=== PATIENT | female | born 1985 | race African-American/Black ===

== ENCOUNTER 2018-06-30 14:24 | Inpatient (IN) | payer SELFPAY ==
[2018-06-30 15:13] LABS: #Basophils 0.1 thou/uL (0.0-0.2); #Eosinphils 0.1 thou/uL (0.0-0.7); #Lymphocytes 2.7 thou/uL (1.20-3.40); #Monocytes 0.4 thou/uL (0.11-0.59); #Neutrophils 4.5 thou/uL (1.40-6.50); %Basophils 1.2 % (0.0-1.0); %Eosinophils 0.8 % (0.0-10.0); %Monocytes 4.7 % (0.0-10.0); %Neutrophils 58.4 % (42.0-75.0); Hemoglobin 7.9 g/dL (12.0-16.0); Mean Corpuscular HGB CONC 33.1 g/dL (32.0-36.0); Mean Corpuscular Hemoglobin 42.4 pg (27.0-31.0); Mean Platelet Volume 6.9 fL (7.4-10.4); Platelet Count 417 thou/uL (130-400); RBC Distribution Width 15.2 % (11.5-14.5); Red Blood Cell (RBC) Count 1.85 mill/uL (4.20-5.40); White Blood Cell (WBC) Count 7.8 thou/uL (4.8-10.8)
[2018-06-30 15:26] LABS: Anisocytosis SLIGHT = 6-15 cells (100X) (0-5/hpf); Hypochromia SLIGHT = 6-15 cells (100X) (0-5/hpf); MDiff Complete? YES; Macrocytosis SLIGHT = 6-15 cells (100X) (0-5/hpf); PLT Morphology Comment Appears Increased
--- NOTE | 2018-06-30 15:27 | RAD ---
PORTABLE CHEST: HISTORY: Leg swelling. FINDINGS: Heart size and mediastinum are within normal limits. The lungs are clear of any infiltrative process . No signs of failure. No bony findings. IMPRESSION: No active intrathoracic disease. POS: [facility]
[2018-06-30 15:29] LABS: ALT (SGPT) 35 U/L (8-55); AST (SGOT) 73 U/L (5-34); Albumin 2.7 g/dL (3.5-5.0); Alkaline Phosphatase 317 U/L (40-150); BUN (Urea Nitrogen) Less than 4 mg/dL (7.0-18.7); Bilirubin, Total 0.9 mg/dL (0.2-1.2); CK (CPK) 149 U/L (29-168); Calc. Creatinine Clearance 0 mL/min (70-130); Calcium 7.4 mg/dL (7.8-10.44); Estimated GFR-MDRD Greater than 90; Globulin 3.3 g/dL (2.4-3.5); Glucose 103 mg/dL (70-105)
[2018-06-30 15:33] LABS: CKMB 1.6 ng/mL (0-6.6); Troponin I Less than 0.010 ng/mL (< 0.028)
[2018-06-30 15:35] LABS: Chloride 89 mmol/L (98-107); Sodium 139 mmol/L (136-145)
[2018-06-30 15:38] LABS: Anion Gap 19 mmol/L (10-20); Carbon Dioxide 33 mmol/L (22-29)
[2018-06-30 15:45] LABS: Potassium 1.8 mmol/L (3.5-5.1)
[2018-06-30] MEDS ORDERED: Potassium Chloride 40 MEQ in Sodium Chloride 0.45% 1,000 ML IV SCH (16:30)
[2018-06-30] MEDS ORDERED: Potassium ACETATE 40 MEQ/20 ML VIAL IV ONE (16:34)
[2018-06-30] MEDS ORDERED: Magnesium 2 GM/50 ML BAG (IN WATER) ONE (16:35)
[2018-06-30] MEDS ORDERED: Potassium Chloride 20 MEQ TAB ONE (16:35)
[2018-06-30] MEDS ORDERED: hydrALAZINE 20 MG/ML VIAL SLOW IVP PRN (16:56)
[2018-06-30] MEDS ORDERED: Sodium Chloride 0.65% Nasal 44 ML BOT EA NARE PRN (16:56)
[2018-06-30] MEDS ORDERED: Diabetic Tussin 200 MG/10 ML UDCUP PO PRN (16:56)
[2018-06-30] MEDS ORDERED: Bisacodyl 5 MG TAB PO PRN (16:56)
[2018-06-30] MEDS ORDERED: Calcium Carbonate 500 MG ChewTAB PO PRN (16:56)
[2018-06-30] MEDS ORDERED: cloNIDine 0.1 MG TAB PO PRN (16:56)
[2018-06-30] MEDS ORDERED: Bisacodyl 10 MG SUPP PR PRN (16:56)
[2018-06-30] MEDS ORDERED: Benzonatate 100 MG CAP PO PRN (16:56)
[2018-06-30] MEDS ORDERED: Senokot S 8.6-50 MG TAB PO PRN (16:56)
[2018-06-30] MEDS ORDERED: Nitroglycerin 0.4 MG TAB (25 Tab Bottle) SL PRN (16:56)
[2018-06-30] MEDS ORDERED: Ondansetron PF 4 MG/2 ML Vial IVP PRN (16:56)
[2018-06-30 17:00] LABS: BHCG - Serum Negative (NEGATIVE); Pregs Control Background? CLEAR/WHITE (CLR/WHITE); Pregs Control Bar Appear? YES (CONTROL BAR)
[2018-06-30] MEDS ORDERED: Magnesium Sulfate 2 GM in Sodium Chloride 0.9% 100 ML IVPB SCH (17:00)
[2018-06-30 17:07] LABS: Bilirubin Negative (Negative); Blood, Urine Negative (Negative); Clarity CLOUDY (Clear); Glucose, Urine (Dipstick) Negative (Negative); Leukocyte Trace (Negative); Nitrite Positive (Negative); Protein, Urine (Dipstick) Trace mg/dL (Neg-Trace); pH, Urine 7.5 (5.0-9.0)
[2018-06-30 17:09] LABS: Bacteria/HPF 2+ HPF (None Seen); Hyaline Casts/LPF 4-6 HYALINE CAST LPF (0-3 Hyaline)
[2018-06-30 17:19] LABS: Amphetamine Not Detected (NotDetected); Barbiturates Screen Not Detected (NotDetected); Benzodiazepine Screen Not Detected (NotDetected); Cocaine Metabolite Screen Not Detected (NotDetected); Medtox Control Line Valid? VALID (VALID); Medtox Reader # READER 1; Methadone Not Detected (NotDetected); Methamphetamine Not Detected (NotDetected); Opiate Screen Not Detected (NotDetected); Oxycodone Screen Not Detected (NotDetected); Phencyclidine (PCP) Not Detected (NotDetected); THC/Cannabinoid Screen Detected (NotDetected); Tricyclic Screen Not Detected (NotDetected)
[2018-06-30 17:21] LABS: RBC/HPF 0-3 HPF (0-3)
[2018-06-30 17:35] LABS: Pregnancy Test - Urine (BHCG) Negative (Negative); Pregu Control Background? CLEAR/WHITE (CLR/WHITE); Pregu Control Bar Appear? YES (CONTROL BAR)
[2018-06-30 18:48] VITALS: BMI 37.9
--- NOTE | 2018-06-30 19:06 | ULT ---
ABDOMINAL ULTRASOUND: HISTORY: Elevated liver function enzymes. TECHNIQUE: Multiple longitudinal and transverse images of the abdomen are obtained using a Multi-Hertz curviline ar transducer. FINDINGS: Real-time, color-flow, and spectral wave-form Doppler analysis demonstrates the liver to be unremarka ble. Some hepatomegaly is seen, but no definite evidence of hepatic parenchymal pathology is seen. No evidence of intrahepatic biliary dilatation is seen. The common bile duct is of normal size, kadie uring 4.4 mm. The gallbladder contains numerous echogenic foci, compatible with numerous gallstones. No evidence o f significant gallbladder wall thickening is seen. The pancreas is suboptimally visualized to comment upon. Both kidneys are unremarkable, with no evidence of masses or lesions. The right kidney measures 10.6 and the left kidney 10.2, from pole to pole. No evidence of hydronephrosis is seen. The spleen is unremarkable. The abdominal aorta and inferior vena cava are difficult to visualize due to overlying bowel gas. IMPRESSION: Cholelithiasis without definite evidence of cholecystitis. POS: [facility]
--- NOTE | 2018-06-30 19:21 | HP ---
DATE OF ADMISSION: 06/30/2018 CHIEF COMPLAINT: Worsening swelling. PRIMARY CARE PHYSICIAN: Emanuel. HISTORY OF PRESENTING ILLNESS: Ms. Delarosa is a 32-year-old -[place] female without any s ignificant past medical history who presented to the emergency room with above-mentioned complaint. History is mainly obtained by the patient herself who is somewhat of a poor historian. It seems that she is withholding information. Case has been discussed with the admitting ER physician, Dr. Kelley hardwick. According to Ms. Delarosa, she has been noticing some swelling all over her body for the last few m onths. This morning her mother and brother insisted that she needs to come to the emergency room so she presented here. Upon presentation, she was found to have significant for laboratory abnormalitie s including significant anemia with a hemoglobin of 7.9, which is largely macrocytic. She had severe hypokalemia with potassium of 1.8, magnesium of 0.9. Calcium low at 7.4. She has metabolic alkalos is with bicarbonate of 33, which is hypochloremic. Her BNP was only 206. Cardiac enzymes normal. M ild elevation of liver enzymes. Serum test was checked on my insistence and it is negative . Urinalysis and urine drug screen was also checked as per my request and urine is positive for nitr ite, leukocyte esterase and some bacteria. Specific gravity is 1.010, pH of 7.5. Urine drug screen positive for cannabinoids. Her chest x-ray does not suggest any significant pleural effusion or pulm onary edema. She has received one dose of Lasix in the emergency room as well as 80 mg of potassium chloride and 2 grams of magnesium sulfate. She is now being admitted for further evaluation and care . Upon closed history taking, the patient did reveal that she has been under a lot of stress lately. S he has very poor oral intake. She reports that she was diagnosed with HPV positive testing at [facility] 3 months ago and since then she has been eating poorly and inducing herself to v omit most on a daily basis, sometimes multiple times in a day, but mainly in the middle of the night when everybody is asleep. She is also stressed out about her social situation. She otherwise denies any menorrhagia. She gets Depo-Provera shot every month at her primary care's office and does not h ave any periods anymore. She denies any hematochezia or melena. She denies any blood in her vomitus . She denies any weight loss. She does have weakness and fatigue on a normal basis. She has some s hortness of breath along with excessive swelling all over the body. She also complains of significan t cramps in her legs. She denies any chest pain or discomfort. She denies any drug or alcohol abuse . She reports that multiple family members have diabetes and also reports that one of her grandmothers was tested positive for breast cancer. PAST MEDICAL HISTORY: HPV diagnosed 1 or 2 months ago. PAST SURGICAL HISTORY: None reviewed with the patient. PSYCHIATRIC HISTORY: Depression and anxiety. SOCIAL HISTORY: She is single mother and lives with her parents. She has two children. I think, 8 and 11 years of age. She quit smoking 7 years ago. Denies any alcohol or drug abuse. ALLERGIES: No known medication allergies. CURRENT MEDICATIONS: None. REVIEW OF SYSTEMS: A 12-point review of systems is done. It is negative except for those mentioned in the history and physical. FAMILY HISTORY: Significant for breast cancer in her grandmother and multiple family members with di abetes. She denies any premature coronary artery disease or stroke, but is unsure. PHYSICAL EXAMINATION: VITAL SIGNS: Upon presentation, blood pressure 140/89, pulse of 102, respirations 16, saturating 99% , temperature 98.9. GENERAL: No acute distress, awake, alert, oriented x3. She does appear somewhat anxious. Generaliz ed anasarca is noticed. HEENT: Mucous membrane is moist and pink. No oropharyngeal exudate or erythema. Head is normocepha lic, atraumatic. Pupils are equal, reactive to light and accommodation. Extraocular movement intact . Conjunctival pallor and mucosal pallor is noticed. NECK: Supple without any lymphadenopathy, JVD or bruit. CHEST: Clear to auscultation bilaterally without any wheezing, rales or rhonchi. Rate and rhythm is regular without any murmur, rubs or gallops. ABDOMEN: Soft, nontender, nondistended with positive bowel sounds. EXTREMITIES: Show pitting edema bilaterally +[address] from her legs up to her chest a nd her neck. SKIN: Free of any rashes or bruises. She does have some calluses at the back of her hand. PSYCHIATRIC: Anxious mood noticed. LABORATORY DATA AND IMAGING DATA: CBC shows WBC 7.8 with normal differential, hemoglobin 7.9 with hi gh MCV and MCH, platelet count of 417. Serum chemistry shows potassium of 1.8, chloride 89, bicarbon ate 33, BUN 4, creatinine 0.70, calcium is low at 7.4, magnesium low at 0.9 with normal phosphorus. AST 73, alkaline phosphatase 317 with normal T. bilirubin and ALT. Normal creatinine kinase, CK-MB a nd troponin are within normal limits. BNP of 206. Urine and serum tests are neg ative. UA with +2 bacteria. Urine drug screen positive for cannabinoids. Chest x-ray by my review has no evidence to suggest cardiomegaly or infiltrates. Her albumin is low at 2.7. A 12-lead EKG by my review shows normal sinus rhythm at 94 beats per minute with QTC interval of 522 milliseconds. I t is hard to appreciate anyways by my evaluation in this EKG. No ST or T-wave depressions are seen. IMPRESSION AND PLAN: 1. Anasarca. This is likely secondary to hypoalbuminemic stage because of protein malnutrition. Li marita secondary to bulimic behavior. Nevertheless, we will check an echocardiogram, though the possib ility of congestive heart failure is rather low. We will treat her with diuretics with albumin infus ion for now. Discussed probable cause and the best treatment is to stop bulimic behavior. 2. Electrolyte abnormalities including hypokalemia and hypomagnesemia. They are once again due to o ral p.o. intake and bulimia-induced vomiting. Evident by hypochloremic metabolic alkalosis as well. At this time, they will be replaced and we will follow the labs closely for correction. Serial pota ssium and magnesium level check will be done. We will put her on a daily dose of potassium as she is being diuresed with Lasix which will further complicate hypokalemia. 3. Anemia, most likely nutritional deficiencies. We will check serum iron, folic acid and vitamin B 12 level. Supplement as necessary. The patient does not have any evidence of bleeding or hemolysis as for now. She is not sure if anybody in her family has had thalassemia or sickle cell, but feels t hat some members might have had anemia. At this time, we will send a peripheral smear and check for any evidence of hemolysis. test has been negative for urine and serum. Unlikely ectopic p regnancy with that. 4. Elevated liver enzymes once again likely secondary to edematous state and passive congestion. Ch rosalba again in the morning. We will also obtain an abdominal ultrasound 5. Urinary tract infection. We will start her on Rocephin and send urine for culture. 6. Cannabinoid abuse. The patient has been counseled. 7. Positive HPV status. The patient is quite distraught with this diagnosis, but according to the pushpa nunez, if her Pap smear was unremarkable, her screening is indicated in 1 year. However, we will send the genetic testing for HPV subtypes as that might change the management. We will get her janusz rds from [facility] for the results of the Pap smear. 8. Hypochloremic metabolic alkalosis secondary to poor oral intake. At this time, fluids are not in dicated for volume expansion. 9. Hypoalbuminemia, protein malnutrition. The patient has exhibited bulimic behavior. She is encou raged to stop that. 10. Deep venous thrombosis and gastrointestinal prophylaxis and p.r.n. medication orders. DISPOSITION: Ms. Delarosa is currently being admitted for severe hypokalemia and anasarca as above . She will be monitored on telemetry unit for any arrhythmias related to hypokalemia and hypomagnese john. Estimated length of stay at this time is at least 2-3 midnights.
[2018-06-30 19:44] LABS: Iron 214 ug/dL (50-170); Iron Binding Capacity, Total 203 mcg/dL (265-497)
[2018-06-30 20:14] LABS: Folate (Folic Acid) 1.6 ng/mL (7.0-31.4)
[2018-06-30 20:30] LABS: Reticulocyte Count 1.3 % (0.5-1.5)
[2018-06-30 20:48] LABS: BUN (Urea Nitrogen) Less than 4 mg/dL (7.0-18.7); Calc. Creatinine Clearance 216 mL/min (70-130); Calcium 7.3 mg/dL (7.8-10.44); Estimated GFR-MDRD Greater than 90; Glucose 104 mg/dL (70-105); Magnesium 1.5 mg/dL (1.6-2.6)
[2018-06-30 20:51] LABS: Band 1 % (5-11); Eosinophils 1 % (0-10); Hemoglobin 7.5 g/dL (12.0-16.0); Lymphocytes 28 % (21-51); MDiff Complete? YES; Mean Corpuscular HGB CONC 34.1 g/dL (32.0-36.0); Mean Corpuscular Hemoglobin 43.8 pg (27.0-31.0); Mean Platelet Volume 6.8 fL (7.4-10.4); Monocytes 5 % (0-10); Neutrophil 65 % (42-75); PLT Morphology Comment Appears Adequate; Platelet Count 342 thou/uL (130-400); RBC Distribution Width 15.2 % (11.5-14.5); Red Blood Cell (RBC) Count 1.72 mill/uL (4.20-5.40); White Blood Cell (WBC) Count 8.4 thou/uL (4.8-10.8)
[2018-06-30 20:54] LABS: Troponin I Less than 0.010 ng/mL (< 0.028)
[2018-06-30 20:57] LABS: Anion Gap 15 mmol/L (10-20); Carbon Dioxide 37 mmol/L (22-29); Chloride 89 mmol/L (98-107); Sodium 139 mmol/L (136-145)
[2018-06-30 21:02] LABS: Potassium 1.8 mmol/L (3.5-5.1)
[2018-06-30] MEDS: cefTRIAXone\\ROCEPHIN 1 GM in Sodium Chloride 0.9% 100 ML IVPB SCH (21:36)
[2018-06-30] MEDS: Cyclobenzaprine 10 MG TAB PO PRN (21:37)
[2018-06-30] MEDS: Famotidine 20 MG TAB PO SCH (21:37)
[2018-06-30] MEDS: Potassium Chloride 20 MEQ TAB PO SCH (21:38)
[2018-06-30] MEDS ORDERED: diphenhydrAMINE 25 MG CAP PO PRN (23:08)
[2018-06-30] MEDS ORDERED: traMADol HCl 50 MG TAB PO PRN (23:09)
[2018-07-01 00:37] LABS: Troponin I Less than 0.010 ng/mL (< 0.028)
[2018-07-01] MEDS: Potassium Chloride 20 MEQ TAB PO SCH ×5 (01:20→21:43)
[2018-07-01 02:27] LABS: #Basophils 0.1 thou/uL (0.0-0.2); #Eosinphils 0.1 thou/uL (0.0-0.7); #Monocytes 0.3 thou/uL (0.11-0.59); #Neutrophils 3.5 thou/uL (1.40-6.50); %Eosinophils 0.9 % (0.0-10.0); %Monocytes 4.1 % (0.0-10.0); %Neutrophils 51.1 % (42.0-75.0); Hemoglobin 6.8 g/dL (12.0-16.0); Mean Corpuscular HGB CONC 33.5 g/dL (32.0-36.0); Mean Corpuscular Hemoglobin 42.9 pg (27.0-31.0); Platelet Count 283 thou/uL (130-400); Red Blood Cell (RBC) Count 1.57 mill/uL (4.20-5.40); White Blood Cell (WBC) Count 6.9 thou/uL (4.8-10.8)
[2018-07-01 02:56] LABS: Anion Gap 14 mmol/L (10-20); BUN (Urea Nitrogen) Less than 4 mg/dL (7.0-18.7); Calc. Creatinine Clearance 216 mL/min (70-130); Calcium 7.2 mg/dL (7.8-10.44); Carbon Dioxide 36 mmol/L (22-29); Chloride 92 mmol/L (98-107); Estimated GFR-MDRD Greater than 90; Glucose 109 mg/dL (70-105); Magnesium 1.2 mg/dL (1.6-2.6); Phosphorus 3.3 mg/dL (2.3-4.7); Sodium 140 mmol/L (136-145)
[2018-07-01] MEDS ORDERED: Furosemide 20 MG/2 ML VIAL SLOW IVP SCH (06:00)
[2018-07-01] MEDS ORDERED: Furosemide 40 MG/4 ML VIAL SLOW IVP SCH (06:00)
[2018-07-01] MEDS ORDERED: Potassium Chloride 20 MEQ TAB PO SCH (08:00)
[2018-07-01 08:15] LABS: Hemoglobin 7.2 g/dL (12.0-16.0)
[2018-07-01] MEDS ORDERED: Magnesium 2 GM/50 ML 2 GM in Premix Bag 1 BAG IVPB SCH (08:45)
[2018-07-01] MEDS: Folic Acid 1 MG TAB PO SCH (08:52)
[2018-07-01] MEDS: Famotidine 20 MG TAB PO SCH ×2 (08:52→21:44)
[2018-07-01] MEDS: Cyclobenzaprine 10 MG TAB PO PRN ×2 (08:58→21:44)
[2018-07-01 09:10] LABS: Potassium 2.2 mmol/L (3.5-5.1)
[2018-07-01] MEDS: Albumin 25% 25 GM/100 ML BOT IVPB SCH (09:46)
--- NOTE | 2018-07-01 12:06 | CON ---
DATE OF CONSULTATION: 07/01/2018 CONSULTING PHYSICIAN: Dr. Cam Rosado REQUESTING PHYSICIAN: Dr. Gala Pope REASON FOR CONSULTATION: Severe electrolyte derangements. IMPRESSION: 1. Severe hypokalemia. This is likely dietary. 2. Anemia, likely in the context of folic acid deficiency. 3. Severe malnutrition with the possibility of bulimia. PLAN: 1. Investigate this patient's anemia and folic acid deficiency as well as hypokalemia. Would theref ore evaluate the urine excretion of potassium. Rule out potential urinary loss, though clinically th is is likely in the context of poor p.o. intake. 2. Check the thyroid profile of this patient. 3. Replete magnesium and aggressively replete the potassium. The patient to require 160 mEq of pota ssium today. 4. The patient has been counseled extensively on the need to improve on her diet. HISTORY OF PRESENT ILLNESS: History is that of a 32-year-old female patient who was brought in here because of worsening swelling and some paraesthesia. The patient noted on presentation with severe h ypokalemia less than 2, patient claimed not to be eating well and occasionally induced vomiting by he rself. The patient has been told for quite some time that she was getting swollen and began to have worsening paresthesia. The patient was advised by somebody who saw her and felt the patient was not looking good, presented to the hospital. On presentation, patient was noted with the severe electrol yte derangements and the need for renal consultation. PAST MEDICAL HISTORY: Pretty much unremarkable. MEDICATIONS: Patient is on Depo-Provera. ALLERGIES: No known drug allergy. SOCIAL HISTORY: Denies alcohol. Quit tobacco about 7 years ago. FAMILY HISTORY: None significantly related to the presenting illness. REVIEW OF SYSTEMS: As documented in the body of the history. All the other systems were reviewed an d found not to be significantly related to presenting illness. PHYSICAL EXAMINATION: GENERAL: The patient was found not to be in any obvious distress. VITAL SIGNS: Afebrile with temperature 99.3, pulse 91, respiratory rate of 20, O2 sat 95% with blood pressure 100/62. HEENT: Unremarkable. CARDIOVASCULAR SYSTEM: First and second heart sounds were heard. RESPIRATORY SYSTEM: Clear to auscultation. DIGESTIVE SYSTEM: Revealed a benign abdomen with positive bowel sounds. EXTREMITIES: No peripheral edema. SKIN: No new gross rash. LYMPHATICS: No peripheral lymphadenopathy. SUMMARY: A 32-year-old female patient who presented to the hospital noted with severe electrolyte de rangements. Thank you for this consultation. We will follow with you.
--- NOTE | 2018-07-01 12:17 | PDOC.PN ---
- Subjective Encounter Start Date: 07/01/18 Encounter Start Time: 12:16 Subjective: feels much better.feels that swelling is going down -: denies ny BRB-FL,or vomiting.no abd pain - Objective MAR Reviewed: Yes Vital Signs & Weight: Vital Signs (12 hours) Temp Pulse Resp BP Pulse Ox 07/01/18 11:49 98.1 F 91 14 125/58 L 93 L 07/01/18 08:00 97.6 F 90 14 130/64 93 L 07/01/18 04:00 99.3 F 91 20 116/62 95 Weight Admit Weight 242 lb 3.2 oz Weight 242 lb 3.2 oz I&O: 06/30/18 07/01/18 07/02/18 06:59 06:59 06:59 Intake Total 100 240 Balance 100 240 Result Diagrams: 07/01/18 07:59 07/01/18 07:59 Additional Labs: Microbiology 06/30/18 16:39 Stool - Pending Stool Occult Blood (CALLUM) - Final 07/01/18 01:20 Urine clean catch Urine Culture - Preliminary NO GROWTH AT 12 HOURS Phys Exam - Physical Examination Constitutional: NAD HEENT: PERRLA, moist MMs, sclera anicteric, oral pharynx no lesions Neck: no nodes, no JVD, supple, full ROM Respiratory: no wheezing, no rales, no rhonchi, clear to auscultation bilateral Cardiovascular: RRR, no significant murmur, no rub Gastrointestinal: soft, non-tender, no distention, positive bowel sounds Musculoskeletal: no edema, pulses present Neurological: non-focal, normal sensation, moves all 4 limbs Psychiatric: normal affect, A&O x 3 Skin: no rash Dx/Plan (1) Anasarca Code(s): R60.1 - GENERALIZED EDEMA Status: Acute (2) Hypokalemia Code(s): E87.6 - HYPOKALEMIA Status: Acute (3) Hypomagnesemia Code(s): E83.42 - HYPOMAGNESEMIA Status: Acute (4) UTI (urinary tract infection) Status: Acute (5) Folic acid deficiency anemia Code(s): D52.9 - FOLATE DEFICIENCY ANEMIA, UNSPECIFIED Status: Chronic (6) Bulimia Code(s): F50.2 - BULIMIA NERVOSA Status: Chronic - Plan PT/OT, DVT proph w/SCDs Replace and recheck potassium and magnesium. -: unlikley renal.mostly nutritional d/t bulimic behaviour -: Supplement FA.high Iron levels? Thalessemia -: will consult Hematology & Nephrology.sens Hb electrophoresis -: sent HPV genetic testing for Types 16,18,Records requested * .ECHO ordered but edema likley due to Protein malnutrition * cont lasix and albumin for now * Urinary Cl and potassium ordered * BMp q 4 hr for now Review of Systems - Review of Systems Constitutional: negative: fever, chills, sweats, weakness, malaise, other ENT: negative: Ear Pain, Ear Discharge, Nose Pain, Nose Discharge, Nose Congestion, Mouth Pain, Mouth Swelling, Throat Pain, Throat Swelling, Other Respiratory: negative: Cough, Dry, Shortness of Breath, Hemoptysis, SOB with Excertion, Pleuritic Pain, Sputum, Wheezing Cardiovascular: negative: chest pain, palpitations, orthopnea, paroxysmal nocturnal dyspnea, edema, light headedness, other Gastrointestinal: negative: Nausea, Vomiting, Abdominal Pain, Diarrhea, Constipation, Melena, Hematochezia, Other Genitourinary: negative: Dysuria, Frequency, Incontinence, Hematuria, Retention , Other Musculoskeletal: negative: Neck Pain, Shoulder Pain, Arm Pain, Back Pain, Hand Pain, Leg Pain, Foot Pain, Other Neurological: negative: Weakness, Numbness, Incoordination, Change in Speech, Confusion, Seizures, Other - Medications/Allergies Allergies/Adverse Reactions: Allergies Allergy/AdvReac Type Severity Reaction Status Date / Time No Known Drug Allergies Allergy Verified 06/30/18 16:26 Medications: Current Medications Acetaminophen (Tylenol) 650 mg PO Q4H PRN PRN Reason: Headache/Fever/Mild Pain (1-3) Albumin Human (Albumin 25%) 25 gm IVPB DAILY [facility] Stop: 07/03/18 09:01 Last Admin: 07/01/18 09:46 Dose: 25 gm Benzonatate (Tessalon) 100 mg PO Q6H PRN PRN Reason: Cough Bisacodyl (Dulcolax) 10 mg PO DAILYPRN PRN PRN Reason: Constipation Bisacodyl (Dulcolax) 10 mg FL DAILYPRN PRN PRN Reason: Constipation Calcium Carbonate (Tums) 1,000 mg PO Q4H PRN PRN Reason: Heartburn or Indigestion Clonidine (Catapres) 0.1 mg PO Q4H PRN PRN Reason: SBP > 160____ Cyclobenzaprine HCl (Flexeril) 10 mg PO BIDPRN PRN PRN Reason: Muscle Spasm Last Admin: 07/01/18 08:58 Dose: 10 mg Famotidine (Pepcid) 20 mg PO BID [facility] Last Admin: 07/01/18 08:52 Dose: 20 mg Folic Acid (Folvite) 1 mg PO DAILY [facility] Last Admin: 07/01/18 08:52 Dose: 1 mg Furosemide (Lasix) 20 mg SLOW IVP 0600,1400 [facility] Guaifenesin (Robitussin Sf) 200 mg PO Q4H PRN PRN Reason: Cough Hydralazine HCl (Apresoline) 10 mg SLOW IVP Q4H PRN PRN Reason: SBP > 180 and HR < 70 Potassium Chloride 40 meq/ (Sodium Chloride) 1,020 mls @ 0 mls/hr IV .Q0M [facility] Ceftriaxone Sodium 1 gm/ (Sodium Chloride) 100 mls @ 200 mls/hr IVPB 2000 [facility] Last Admin: 06/30/18 21:36 Dose: 100 mls Ciprofloxacin/Dextrose 400 mg/ (Device) 200 mls @ 200 mls/hr IVPB 0100,1300 [facility] Nitroglycerin (Nitrostat) 0.4 mg SL Q5MIN PRN PRN Reason: Chest Pain Ondansetron HCl (Zofran) 4 mg IVP Q6H PRN PRN Reason: Nausea/Vomiting Pneumococcal 13-Valent Conj Vacc (Prevnar) 0.5 ml IM .ONCE ONE Stop: 07/02/18 09:01 Potassium Chloride (K-Dur) 40 meq PO QAM-WM [facility] Last Admin: 07/01/18 09:46 Dose: 40 meq Potassium Chloride (K-Dur) 40 meq PO Q4H [facility] Stop: 07/01/18 23:46 Last Admin: 07/01/18 11:50 Dose: 40 meq Senna/Docusate Sodium (Senokot S) 2 tab PO BID PRN PRN Reason: Constipation Sodium Chloride (Greer Nasal [place] 0.65%) 0 ml EA NARE QIDPRN PRN PRN Reason: Nasal Congestion Sodium Chloride (Flush - Normal Saline) 10 ml IVF Q12HR [facility] Last Admin: 07/01/18 09:47 Dose: Not Given Sodium Chloride (Flush - Normal Saline) 10 ml IVF PRN PRN PRN Reason: Saline Flush
[2018-07-01 12:28] LABS: Anion Gap 12 mmol/L (10-20); BUN (Urea Nitrogen) Less than 4 mg/dL (7.0-18.7); Calc. Creatinine Clearance 198 mL/min (70-130); Calcium 7.8 mg/dL (7.8-10.44); Carbon Dioxide 36 mmol/L (22-29); Chloride 91 mmol/L (98-107); Estimated GFR-MDRD Greater than 90; Glucose 102 mg/dL (70-105); Sodium 137 mmol/L (136-145)
[2018-07-01 12:31] LABS: Potassium 2.4 mmol/L (3.5-5.1)
[2018-07-01] MEDS: Furosemide 20 MG/2 ML VIAL SLOW IVP SCH (14:10)
[2018-07-01 16:33] LABS: Anion Gap 14 mmol/L (10-20); BUN (Urea Nitrogen) Less than 4 mg/dL (7.0-18.7); Calc. Creatinine Clearance 198 mL/min (70-130); Calcium 7.8 mg/dL (7.8-10.44); Carbon Dioxide 36 mmol/L (22-29); Chloride 90 mmol/L (98-107); Estimated GFR-MDRD Greater than 90; Glucose 117 mg/dL (70-105); Sodium 138 mmol/L (136-145)
[2018-07-01 16:36] LABS: Potassium 2.2 mmol/L (3.5-5.1)
--- NOTE | 2018-07-01 17:06 | CON ---
DATE OF CONSULTATION: 07/01/2018 REASON FOR CONSULTATION: Anemia and elevated iron. HISTORY OF PRESENT ILLNESS: A 32-year-old female with no significant past medical history presenting to the ER with worsening anasarca. The patient states that she was diagnosed with HBV a few months ago and became very stressed over this and over taking care of her children that she began inducing vomiting and has been bulimic for the last 2-3 months with vomiting 2- 3 times per day. The patient states she began noticing swelling and thought it might be due to her Depo-Provera injections and so she did not seek any medical advice for this. Upon admission to the hospital, the patient's hemoglobin was noted to be 7.9, which trended down to 6.8 and is currently 7.2. Her MCV is 128 and her red blood cell count is currently 1.57 million. Her platelets were elevated at 417,000 and her currently 283,000. Her reticulocyte count was 1.3% . Her potassium is 1.8 on admission and magnesium was 0.9. Folic acid was found to be 1.6. Ferritin was 206, percent iron saturation was 106%, TIBC 203 and iron 214. TSH was 2.85. Vitamin B12 was 357. BNP was 206.7 and albumin on admission was 2.7. The patient states since admission, she does feel better and believes that the swelling has decreased. She denies any family history of anemia in her immediate family, but does state she just received a phone call from her cousin who says she has been diagnosed with anemia, but she is unsure what kind. She states her iron levels have always been elevated and were noted to be elevated when she was over a decade ago, but she was never told why and has not followed up for this. She denies any family history of iron overload disorder such as hemochromatosis. She denies any history of liver disease or cardiac disease in the past. The patient also complains of generalized weakness and fatigue. She denies any blood in her vomit or blood in her stools. Denies any drug or alcohol abuse and quit smoking 7 years ago. REVIEW OF SYSTEMS: Ten-point review of systems is negative except as per HPI. PAST MEDICAL HISTORY: HPV, bulimia. PAST SURGICAL HISTORY: None. PSYCHIATRIC HISTORY: Depression and anxiety. SOCIAL HISTORY: Lives with her parents and 2 children, 8 and 11. Quit smoking 7 years ago. No alcohol or drug abuse. ALLERGIES: No known medication allergies. CURRENT MEDICATIONS: Reviewed. FAMILY HISTORY: Breast cancer in her grandmother. Diabetes in multiple family members. Anemia in her cousin. PHYSICAL EXAMINATION: VITAL SIGNS: Temperature 98.1, pulse 91, respirations 14, satting 93% on room air, blood pressure 125/58. GENERAL APPEARANCE: The patient is lying in bed, in no acute distress, obese. HEENT: Moist mucous membranes. Mild pallor. NECK: No lymphadenopathy. LUNGS: Clear to auscultation bilaterally without wheezes, rales or rhonchi. CARDIAC: S1, S2. Regular rate and rhythm without murmur, rubs or gallops. ABDOMEN: Obese, but soft and nontender. EXTREMITIES: 2+ edema up to knee. This is decreased as per patient. SKIN: No rashes. PSYCHIATRIC: Anxious. NEUROLOGIC: Nonfocal. LABORATORY DATA: Hemoglobin 7.2, MCV 128, RDW 15, platelets 283,000, white blood cells 6.9, retic count 1.3%. Potassium 2.4, BUN less than 4, creatinine 0.72. Magnesium 1.2. Iron 214, TIBC 203, percent saturation 106%, ferritin 206. AST 73, alkaline phosphatase 317. BNP 206.7. Albumin 2.7, folate 1.60, vitamin B12 357, TSH 2.85. Urine negative. Urine, positive nitrites , trace leukocyte esterase, 2+ bacteria. Urine tox shows cannabinoids. Occult blood negative. Urine culture pending. IMPRESSION AND PLAN: A 32-year-old female with 2-month history of bulimia presenting with anasarca and found to be anemic secondary to folic acid deficiency. The patient's hemoglobin was as low as 6.8 and is currently 7.2 with a folate of 1.6. This is consistent with a largely macrocytic anemia with an MCV of 128. The patient has been started on folic acid replacement and had been instructed on correcting her dietary insufficiencies by myself, Dr. Pope and Dr. Rosado. The patient was also found to have an extremely elevated iron levels. These could be secondary to an undiagnosed thalassemia, which can sometimes be seen with trait alone, but is more common in true thalassemia and the patient denies any history of anemia in the past. This can also be due to hereditary hemochromatosis as she states her iron levels were high even when she was over a decade ago, however this is most likely to severe protein malnutrition from bulimia which can lead to decreased transferrin production leading to a high iron saturation and should improve with correction of underlying disorder. The patient had an echocardiogram today and currently awaiting the results of this. We will consider screening the patient for hereditary hemochromatosis with genetic testing if hemoglobin electrophoresis returns normal. We will continue to follow this patient along with you. Thank you for this consult. JEANIE
[2018-07-01 20:31] LABS: Anion Gap 13 mmol/L (10-20); BUN (Urea Nitrogen) Less than 4 mg/dL (7.0-18.7); Calc. Creatinine Clearance 204 mL/min (70-130); Calcium 7.8 mg/dL (7.8-10.44); Carbon Dioxide 37 mmol/L (22-29); Chloride 91 mmol/L (98-107); Estimated GFR-MDRD Greater than 90; Glucose 107 mg/dL (70-105); Sodium 138 mmol/L (136-145)
[2018-07-01 20:36] LABS: Potassium 2.5 mmol/L (3.5-5.1)
[2018-07-01] MEDS: cefTRIAXone\\ROCEPHIN 1 GM in Sodium Chloride 0.9% 100 ML IVPB SCH (21:42)
[2018-07-01] MEDS: Acetaminophen 325 MG TAB PO PRN (21:44)
[2018-07-01] MEDS ORDERED: Potassium Chloride 20 MEQ in Premix Bag 1 BAG IVPB SCH (22:00)
[2018-07-02] MEDS ORDERED: Magnesium 2 GM/50 ML 2 GM in Premix Bag 1 BAG IVPB SCH (00:30)
[2018-07-02] MEDS ORDERED: NS 0.9% w/ 40 MEQ KCL 1,000 ML IV SCH (00:30)
[2018-07-02] MEDS: Potassium Chloride 20 MEQ TAB PO SCH ×4 (01:02→20:58)
[2018-07-02] MEDS: Acetaminophen 325 MG TAB PO PRN ×3 (02:16→20:59)
[2018-07-02] MEDS: Furosemide 20 MG/2 ML VIAL SLOW IVP SCH ×2 (06:36→20:59)
[2018-07-02] MEDS ORDERED: Prevnar 13-Val Conj/PF 0.5 ML SYRINGE IM ONE (09:00)
[2018-07-02] MEDS: Folic Acid 1 MG TAB PO SCH (09:37)
[2018-07-02] MEDS: Famotidine 20 MG TAB PO SCH ×2 (09:37→20:57)
[2018-07-02] MEDS: Albumin 25% 25 GM/100 ML BOT IVPB SCH (09:37)
[2018-07-02] MEDS: Cyclobenzaprine 10 MG TAB PO PRN ×2 (09:41→21:01)
[2018-07-02 09:48] LABS: #Basophils 0.1 thou/uL (0.0-0.2); #Eosinphils 0.1 thou/uL (0.0-0.7); #Lymphocytes 2.6 thou/uL (1.20-3.40); #Monocytes 0.4 thou/uL (0.11-0.59); %Eosinophils 1.6 % (0.0-10.0); %Monocytes 6.6 % (0.0-10.0); %Neutrophils 48.8 % (42.0-75.0); Hemoglobin 7.1 g/dL (12.0-16.0); Mean Corpuscular HGB CONC 32.7 g/dL (32.0-36.0); Mean Corpuscular Hemoglobin 41.9 pg (27.0-31.0); Mean Platelet Volume 7.4 fL (7.4-10.4); Platelet Count 278 thou/uL (130-400); RBC Distribution Width 15.2 % (11.5-14.5); Red Blood Cell (RBC) Count 1.71 mill/uL (4.20-5.40); White Blood Cell (WBC) Count 6.2 thou/uL (4.8-10.8)
[2018-07-02 10:01] LABS: BUN (Urea Nitrogen) Less than 4 mg/dL (7.0-18.7); Calc. Creatinine Clearance 210 mL/min (70-130); Estimated GFR-MDRD Greater than 90; Glucose 108 mg/dL (70-105)
[2018-07-02 10:10] LABS: Anion Gap 21 mmol/L (10-20); Carbon Dioxide 29 mmol/L (22-29); Chloride 93 mmol/L (98-107); Sodium 140 mmol/L (136-145)
[2018-07-02 10:13] LABS: Potassium 2.5 mmol/L (3.5-5.1)
[2018-07-02] MEDS ORDERED: Potassium Chloride 20 MEQ TAB PO SCH (11:15)
--- NOTE | 2018-07-02 16:52 | PDOC.PN ---
- Subjective Encounter Start Date: 07/02/18 Encounter Start Time: 16:49 Subjective: nsg notes rev, karla ovn, overall feels a little better and is hoping to be -: able to go home tomorrow - Objective Vital Signs & Weight: Vital Signs (12 hours) Temp Pulse Resp BP Pulse Ox 07/02/18 15:45 98.6 F 97 18 110/59 L 98 07/02/18 11:15 97 18 131/63 100 07/02/18 07:07 97.8 F 84 16 116/64 99 Weight Admit Weight 242 lb 3.2 oz Weight 242 lb 3.2 oz I&O: 07/01/18 07/02/18 07/03/18 06:59 06:59 06:59 Intake Total 100 1450 Output Total 4 Balance 100 1446 Result Diagrams: 07/02/18 09:27 07/02/18 09:27 Dx/Plan - Plan Dx/Plan (1) Anasarca Code(s): R60.1 - GENERALIZED EDEMA Status: Acute likely related to poor nutritional status ECHO with preserved EF continue lasix + potassium (2) Hypokalemia Code(s): E87.6 - HYPOKALEMIA Status: Acute improving - requiring constant replacement recheck BMP in AM (3) Hypomagnesemia Code(s): E83.42 - HYPOMAGNESEMIA Status: Acute improving requiring replacement recheck in AM (4) UTI (urinary tract infection) Status: Acute (5) Folic acid deficiency anemia Code(s): D52.9 - FOLATE DEFICIENCY ANEMIA, UNSPECIFIED Status: Chronic -: Supplement FA.high Iron levels? Thalessemia -: will consult Hematology & Nephrology.sens Hb electrophoresis (6) Bulimia Code(s): F50.2 - BULIMIA NERVOSA Status: Chronic - Plan PT/OT, DVT proph w/SCDs d/w pt that discharge is dependent on appropriate electrolyte levels greater than 30 minutes with pt at bedside discussing diagnoses and plan of care Review of Systems - Medications/Allergies Allergies/Adverse Reactions: Allergies Allergy/AdvReac Type Severity Reaction Status Date / Time No Known Drug Allergies Allergy Verified 06/30/18 16:26 Medications: Current Medications Acetaminophen (Tylenol) 650 mg PO Q4H PRN PRN Reason: Headache/Fever/Mild Pain (1-3) Last Admin: 07/02/18 11:48 Dose: 650 mg Albumin Human (Albumin 25%) 25 gm IVPB DAILY [facility] Stop: 07/03/18 09:01 Last Admin: 07/02/18 09:37 Dose: 25 gm Benzonatate (Tessalon) 100 mg PO Q6H PRN PRN Reason: Cough Bisacodyl (Dulcolax) 10 mg PO DAILYPRN PRN PRN Reason: Constipation Bisacodyl (Dulcolax) 10 mg [place] DAILYPRN PRN PRN Reason: Constipation Calcium Carbonate (Tums) 1,000 mg PO Q4H PRN PRN Reason: Heartburn or Indigestion Clonidine (Catapres) 0.1 mg PO Q4H PRN PRN Reason: SBP > 160____ Cyclobenzaprine HCl (Flexeril) 10 mg PO BIDPRN PRN PRN Reason: Muscle Spasm Last Admin: 07/02/18 09:41 Dose: 10 mg Famotidine (Pepcid) 20 mg PO BID [facility] Last Admin: 07/02/18 09:37 Dose: 20 mg Folic Acid (Folvite) 1 mg PO DAILY [facility] Last Admin: 07/02/18 09:37 Dose: 1 mg Guaifenesin (Robitussin Sf) 200 mg PO Q4H PRN PRN Reason: Cough Hydralazine HCl (Apresoline) 10 mg SLOW IVP Q4H PRN PRN Reason: SBP > 180 and HR < 70 Ceftriaxone Sodium 1 gm/ (Sodium Chloride) 100 mls @ 200 mls/hr IVPB 2000 [facility] Last Admin: 07/01/18 21:42 Dose: 100 mls Ciprofloxacin/Dextrose 400 mg/ (Device) 200 mls @ 200 mls/hr IVPB 0100,1300 [facility] Last Admin: 07/02/18 14:40 Dose: 200 mls Nitroglycerin (Nitrostat) 0.4 mg SL Q5MIN PRN PRN Reason: Chest Pain Ondansetron HCl (Zofran) 4 mg IVP Q6H PRN PRN Reason: Nausea/Vomiting Potassium Chloride (K-Dur) 40 meq PO QAM-WM [facility] Last Admin: 07/02/18 09:37 Dose: 40 meq Potassium Chloride (K-Dur) 40 meq PO Q6H [facility] Stop: 07/03/18 09:31 Last Admin: 07/02/18 15:48 Dose: 40 meq Senna/Docusate Sodium (Senokot S) 2 tab PO BID PRN PRN Reason: Constipation Sodium Chloride ([place] Nasal [place] 0.65%) 0 ml EA NARE QIDPRN PRN PRN Reason: Nasal Congestion Sodium Chloride (Flush - Normal Saline) 10 ml IVF Q12HR [facility] Last Admin: 07/02/18 09:39 Dose: 10 ml Sodium Chloride (Flush - Normal Saline) 10 ml IVF PRN PRN PRN Reason: Saline Flush
--- NOTE | 2018-07-02 17:55 | PRG ---
DATE OF SERVICE: 07/02/2018 SUBJECTIVE: Patient is seen and examined today with no new complaint, very eager to go home, noted w ith the following vital signs. PHYSICAL EXAMINATION: VITAL SIGNS: with temperature 98.6, pulse 97, respiratory rate of 18, O2 saturation 98% with b lood pressure 171/63. HEENT: Unremarkable. CARDIOVASCULAR: First and second heart sounds were heard. RESPIRATORY: Clear to auscultation. DIGESTIVE: Revealed a benign abdomen. EXTREMITIES: No significant peripheral edema. SKIN: No new gross rash. LYMPHATICS: No peripheral lymphadenopathy. LABORATORY INVESTIGATIONS: Showed a potassium of 2.5, hemoglobin 7.1. IMPRESSION: 1. Severe hypokalemia, persistent, not very clear to me. Patient received all the potassium supplem entation that were ordered yesterday. 2. Anemia of megaloblastic nature, possibly in the context of folic acid deficiency. PLAN: 1. We will continue with aggressive potassium repletion. 2. Reevaluate magnesium tomorrow and replete accordingly. 3. In as much as the folic acid deficiency and this patient is likely to be diet related. How ever, I do not trust this patient's GI tract in terms of absorption. Therefore, we will start this p atient on subcutaneous folic acid supplementation and as an outpatient, patient and continue with ora l folic acid supplementation above. 4. We will closely monitor this patient. Anion gap characteristics and make recommendations andie cannon. 5. Discontinue Lasix. 6. Further management to be dependent on the clinical course.
[2018-07-02] MEDS: cefTRIAXone\\ROCEPHIN 1 GM in Sodium Chloride 0.9% 100 ML IVPB SCH (20:57)
[2018-07-03] MEDS: Acetaminophen 325 MG TAB PO PRN (03:30)
[2018-07-03] MEDS: Potassium Chloride 20 MEQ TAB PO SCH ×3 (03:30→09:37)
[2018-07-03 06:06] LABS: #Basophils 0.1 thou/uL (0.0-0.2); #Eosinphils 0.2 thou/uL (0.0-0.7); #Lymphocytes 3.1 thou/uL (1.20-3.40); #Monocytes 0.5 thou/uL (0.11-0.59); #Neutrophils 3.3 thou/uL (1.40-6.50); %Basophils 0.9 % (0.0-1.0); %Eosinophils 2.3 % (0.0-10.0); %Monocytes 7.1 % (0.0-10.0); %Neutrophils 45.8 % (42.0-75.0); Hemoglobin 6.6 g/dL (12.0-16.0); Mean Corpuscular HGB CONC 33.2 g/dL (32.0-36.0); Mean Corpuscular Hemoglobin 42.8 pg (27.0-31.0); Mean Platelet Volume 7.9 fL (7.4-10.4); Platelet Count 226 thou/uL (130-400); RBC Distribution Width 15.5 % (11.5-14.5); Red Blood Cell (RBC) Count 1.54 mill/uL (4.20-5.40); White Blood Cell (WBC) Count 7.1 thou/uL (4.8-10.8)
[2018-07-03 06:16] LABS: Anion Gap 11 mmol/L (10-20); BUN (Urea Nitrogen) Less than 4 mg/dL (7.0-18.7); Calc. Creatinine Clearance 219 mL/min (70-130); Carbon Dioxide 31 mmol/L (22-29); Chloride 97 mmol/L (98-107); Estimated GFR-MDRD Greater than 90; Glucose 81 mg/dL (70-105); Magnesium 1.2 mg/dL (1.6-2.6); Potassium 3.5 mmol/L (3.5-5.1); Sodium 135 mmol/L (136-145)
[2018-07-03 09:18] VITALS: BP 111/59
[2018-07-03] MEDS: Folic Acid 1 MG TAB PO SCH (09:19)
[2018-07-03] MEDS: Albumin 25% 25 GM/100 ML BOT IVPB SCH (09:20)
[2018-07-03] MEDS: Famotidine 20 MG TAB PO SCH (09:20)
[2018-07-03] MEDS: Cyclobenzaprine 10 MG TAB PO PRN (09:24)
[2018-07-03] MEDS ORDERED: Magnesium 2 GM/50 ML 2 GM in Premix Bag 1 BAG IVPB SCH (10:00)
[2018-07-03 12:02] LABS: Hemoglobin 8.4 g/dL (12.0-16.0)
[2018-07-03 13:27] VITALS: TEMP 98.2
[2018-07-03 14:23] LABS: Hemoglobin A 97.5 % (96.4-98.8); Hemoglobin A2 1.9 % (1.8-3.2); Hemoglobin F 0.6 % (0.0-2.0); Interpretation Note: (.)
[2018-07-03] MEDS ORDERED: Magnesium Oxide 400 MG TAB PO SCH (21:00)
--- NOTE | 2018-07-04 06:32 | DIS ---
DATE OF ADMISSION: 06/30/2018 DATE OF DISCHARGE: 07/03/2018 DISCHARGE DISPOSITION: Home. FOLLOWUP: 1. Follow up with [facility] in 1 week. 2. Follow up with Dr. Levy in 10 days. INPATIENT CONSULTANTS: Oncology Service, Jean Pierre Ctoto M.D. The patient was seen and examined on the day of discharge. Denies any new complaints. No chest pain , shortness of breath or palpitations. ALLERGIES: No known drug allergies. DISCHARGE MEDICATIONS: Potassium chloride 20 mEq daily, magnesium oxide 400 mg b.i.d., folic acid 1 mg twice a day, Flexeril as needed, Tylenol as needed. Repeat base met, repeat BMP as well as H and H after 1 week. Primary care physician advised to nidia johnson BRIEF HOSPITAL COURSE: The patient is a 32-year-old female who presented to the [facility] with generalized body swelling. Please refer to the history and physical for further details. The patient was admitted to the hospital with a diagnosis of anasarca, probably secondary to hypoalbu minemia. She was also found to have several electrolyte abnormalities as well as anemia. Her hemogl obin on the day of admission was 6.8. Potassium on admission was 2.4, magnesium was 0.9. Vitamin B1 2 was 357, folic acid was 1.6. Iron studies showed iron of 214, TIBC 203, saturation of 106 with carleen ritin of 206. Her electrolytes have been gradually replaced. She was seen by Nephrology, Dr. Keila chapa as well. Lifestyle modification was emphasized. She has been started on folic acid supplementa tion. She did not receive any blood transfusion. Her hemoglobin on the day of discharge is 8.4. jose daniel was advised to follow up with her primary care next week with repeat labs. FINAL DIAGNOSES: 1. Generalized anasarca, multifactorial. 2. Moderate protein calorie malnutrition. 3. Hypokalemia. 4. Hypomagnesemia. 5. Chronic metabolic alkalosis of unclear etiology. 6. Microcytic anemia, probably secondary to folic acid deficiency. 7. Obesity with a BMI 37.9. 8. Cannabis abuse. 9. Suspected urinary tract infection on admission. Urine cultures, however, showed less than 10,000 mixed skin joy. Antibiotics were later discontinued. DIAGNOSTIC TESTS: 1. Stool for occult blood was negative. 2. Echocardiogram showed left ventricular ejection fraction of 50%-55% with moderate mitral regurgit ation and mild tricuspid regurgitation. The patient was also advised to follow up with Oncology Clinic for possible thalassemia. She will re quire a hemoglobin electrophoresis if the hemoglobin does not improve with folic acid supplementation per Oncology. Plan of care was discussed with the patient in detail. She stated understanding.
== END 2018-07-03 14:58 | disposition home or self-care (01) | DRG 844 ==
LOC: ERS 14:24 → 2NO 18:37
PROVIDERS: ADMIT Internal Medicine; ATTEND Internal Medicine
DX: E88.09 Other disorders of plasma-protein metabolism, not elsewhere classified (principal); N39.0 Urinary tract infection, site not specified; E87.3 Alkalosis; E44.0 Moderate protein-calorie malnutrition; F50.2 Bulimia nervosa; E87.6 Hypokalemia; D53.9 Nutritional anemia, unspecified; F32.9 Major depressive disorder, single episode, unspecified; F41.9 Anxiety disorder, unspecified; R60.1 Generalized edema; Z68.37 Body mass index [BMI] 37.0-37.9, adult; E83.42 Hypomagnesemia; F12.10 Cannabis abuse, uncomplicated; E87.8 Other disorders of electrolyte and fluid balance, not elsewhere classified; E66.9 Obesity, unspecified; D50.9 Iron deficiency anemia, unspecified; D56.9 Thalassemia, unspecified; D52.9 Folate deficiency anemia, unspecified; R87.810 Cervical high risk human papillomavirus (HPV) DNA test positive; Z87.891 Personal history of nicotine dependence; Z83.3 Family history of diabetes mellitus; Z80.3 Family history of malignant neoplasm of breast
CPT/HCPCS: 36415; 36416; 71045; 76700; 80048; 80053; 80306; 81003; 81015; 81025; 82274; 82436; 82553; 82607; 82728; 82746; 83021; 83540; 83550; 83735; 83880; 84100; 84133; 84443; 84484; 84703; 85025; 85046; 85060; 86850; 86900; 86901; 87086; 90471; 90670; 93005; 93306; 96365; 96368; G0009; J0696; J0744; J1940; J2405; J3480; J7050; P9047

== ENCOUNTER 2018-09-11 07:13 | Observation (INO) | payer OTHER, SELFPAY ==
[2018-09-11] MEDS ORDERED: Ondansetron PF 4 MG/2 ML Vial ONE (07:41)
[2018-09-11] MEDS ORDERED: Morphine 4 MG/ML VIAL ONE (07:41)
[2018-09-11 08:12] LABS: #Lymphocytes 2.6 thou/uL (1.20-3.40); #Monocytes 1.3 thou/uL (0.11-0.59); #Neutrophils 9.9 thou/uL (1.40-6.50); %Basophils 0.1 % (0.0-1.0); %Eosinophils 0.3 % (0.0-10.0); %Lymphocytes 18.7 % (21.0-51.0); %Monocytes 9.4 % (0.0-10.0); %Neutrophils 71.5 % (42.0-75.0); Hemoglobin 15.3 g/dL (12.0-16.0); Mean Corpuscular HGB CONC 32.3 g/dL (32.0-36.0); Mean Corpuscular Hemoglobin 27.7 pg (27.0-31.0); Mean Platelet Volume 8.6 fL (7.4-10.4); Platelet Count 449 thou/uL (130-400); RBC Distribution Width 15.3 % (11.5-14.5); White Blood Cell (WBC) Count 13.8 thou/uL (4.8-10.8)
[2018-09-11 08:22] LABS: BHCG - Serum Negative (NEGATIVE); Pregs Control Background? CLEAR/WHITE (CLR/WHITE); Pregs Control Bar Appear? YES (CONTROL BAR)
[2018-09-11 08:44] LABS: Magnesium 2.5 mg/dL (1.6-2.6)
[2018-09-11 08:58] LABS: ALT (SGPT) 36 U/L (8-55); AST (SGOT) 24 U/L (5-34); Albumin 4.5 g/dL (3.5-5.0); Alkaline Phosphatase 387 U/L (40-150); Anion Gap 16 mmol/L (10-20); BUN (Urea Nitrogen) Less than 4 mg/dL (7.0-18.7); Bilirubin, Total 0.5 mg/dL (0.2-1.2); CRP (Inflammatory) 1.71 mg/dL (= or < 0.5); Calc. Creatinine Clearance 0 mL/min (70-130); Calcium 10.3 mg/dL (7.8-10.44); Carbon Dioxide 25 mmol/L (22-29); Chloride 99 mmol/L (98-107); Estimated GFR-MDRD Greater than 90; Globulin 4.7 g/dL (2.4-3.5); Glucose 128 mg/dL (70-105); Protein, Total 9.2 g/dL (6.0-8.3); Sodium 137 mmol/L (136-145)
[2018-09-11 09:07] LABS: Potassium 2.5 mmol/L (3.5-5.1)
--- NOTE | 2018-09-11 09:14 | ULT ---
VENOUS DUPLEX SONOGRAM RIGHT LOWER EXTREMITY: History: Right leg pain and edema. FINDINGS: The right common femoral vein and greater saphenous junction were evaluated along with the femoral, d eep femoral, popliteal, and posterior tibial veins. There is good color and spectral doppler flow, co mpression, and augmentation. IMPRESSION: No sonographic evidence of DVT with in the right lower extremity. POS: [facility]
[2018-09-11] MEDS ORDERED: Ketorolac Tromethamine 30 MG/ML VIAL ONE (10:01)
[2018-09-11] MEDS ORDERED: Potassium Chloride 20 MEQ TAB ONE (10:54)
--- NOTE | 2018-09-11 10:56 | RAD ---
RIGHT FOOT RADIOGRAPHS THREE VIEWS: 09/11/2018 PROVIDED CLINICAL HISTORY: Right foot pain. COMPARISON: 04/07/2011 FINDINGS: Metatarsus primus varus and hallux valgus is noted. No evidence for fracture or other acute osseous abnormality. Alignment appears otherwise anatomic. Joint spaces appear preserved. IMPRESSION: No evidence for an acute osseous abnormality. If there is persistent clinical concern, conservative management and follow-up imaging are advised. POS: [facility]
--- NOTE | 2018-09-11 10:57 | RAD ---
RIGHT ANKLE RADIOGRAPHS THREE VIEWS: 09/11/2018 PROVIDED CLINICAL HISTORY: Right ankle pain. FINDINGS: There is no evidence for fracture or other acute osseous abnormality. If there is persistent clinical concern, conservative management and follow-up imaging are advised. IMPRESSION: As above. POS: [facility]
--- NOTE | 2018-09-11 10:58 | RAD ---
RIGHT KNEE FOUR VIEWS: HISTORY: Right knee pain and swelling for two days. COMPARISON: 04/07/2011 FINDINGS: Four views of the right knee show no evidence of acute fracture or dislocation. No degenerative griffin ges are seen. No soft tissue swelling is present. IMPRESSION: Unremarkable examination. POS: [facility]
[2018-09-11 14:17] VITALS: BMI 38.2
[2018-09-11] MEDS ORDERED: Ondansetron ODT 4 MG TAB SL PRN (15:19)
[2018-09-11] MEDS ORDERED: Ondansetron PF 4 MG/2 ML Vial IVP PRN (15:19)
[2018-09-11] MEDS ORDERED: Acetaminophen 325 MG TAB PO PRN (15:46)
[2018-09-11] MEDS ORDERED: Acetaminophen 650 MG Suppository PR PRN (15:46)
[2018-09-11 16:25] LABS: Iron 14 ug/dL (50-170); Iron Binding Capacity, Total 348 mcg/dL (265-497)
[2018-09-11 16:27] LABS: Iron 14 ug/dL (50-170); Iron Binding Capacity, Total 354 mcg/dL (265-497); Magnesium 1.5 mg/dL (1.6-2.6); Potassium 3.3 mmol/L (3.5-5.1)
[2018-09-11 17:06] LABS: Folate (Folic Acid) 15.5 ng/mL (7.0-31.4)
[2018-09-11] MEDS ORDERED: Acetaminophen/Codeine 30-300mg Tablet PO PRN (17:58)
[2018-09-11] MEDS ORDERED: Potassium Chloride 20 MEQ TAB PO SCH (18:00)
--- NOTE | 2018-09-11 18:02 | PDOC.EVN ---
Event Note - Event Note Event Note: Chart reviewed. Pt seen. c/o ongoing RLE pain, unable to bear weight. VSS, afebrile. S1, S2, reg. Lungs CTA. R knee tender to tough, no erythema, mildly warm. Decreased ROM secondary to pain. Differential includes rheumatologic and other causes. Workup initiated. [place] following as well. Pain medications PRN. Replace lytes PRN.
[2018-09-11] MEDS ORDERED: Magnesium 2 GM/50 ML 2 GM in Premix Bag 1 BAG IVPB SCH (18:15)
[2018-09-11] MEDS: Cyclobenzaprine 10 MG TAB PO PRN (18:17)
[2018-09-11] MEDS: Famotidine 20 MG TAB PO SCH (20:50)
[2018-09-11] MEDS: Folic Acid 1 MG TAB PO SCH (20:50)
[2018-09-11] MEDS: Acetaminophen/Codeine 30-300mg Tablet PO PRN (23:19)
--- NOTE | 2018-09-11 23:51 | HP ---
CHIEF COMPLAINT: Right knee pain. HISTORY OF PRESENT ILLNESS AND REVIEW OF SYSTEMS: This is a very pleasant 32-year-old woman, presenting with complaints of right knee pain since Sunday, 2 days ago. The patient states initially the pain was most noticeable in the lower part of her right leg, just above her ankle and would occasionally radiate up her leg to her knee. She states this gradually worsened and this morning, she is unable to bear any weight with most of her pain in the knee. She denies any injury or falls. Had a similar pain in the left knee back in June; during which time, she underwent workup and was apparently found to have possible thalassemia. She was referred to Oncology as an outpatient and advised to continue folic acid. The patient states she was unaware of any diagnosis of thalassemia and did not require any electrophoresis or transfusion. She states she had severe anemia during her previous admission with a hemoglobin of 5. The patient denies having any recent fevers, chills, or sweats. She denies having any redness or edema to the right knee, though she has noted swelling. She denies any numbness, but states she feels occasional cramp like sensations in her right leg. She has otherwise been feeling well on recent days. No nausea. This morning, she did have one episode of vomiting associated with severe pain, but has had no further vomiting since. Denies having any abdominal pain. Denies having any urinary symptoms. Denies having any changes with her bowels. No chest pain, palpitations, or shortness of breath. No headaches or dizziness. All other review of systems are negative. In the ED, she has undergone multiple x-rays including x-rays of the right foot, right ankle, and right knee, all unremarkable for any fractures or acute abnormalities. She also underwent venous duplex sonogram of the right lower extremity, showing no evidence of a DVT. She has been admitted for further workup and for potassium replacement given that she was noted to be hypokalemic with a potassium level of 2.5. She was given 40 mEq of K-Dur in the ED. It appears oral replacement was chosen over IV replacement due to issues with pain from IV replacement experienced in the past during her previous admission, at which time she was hypokalemic as well. PAST MEDICAL HISTORY: None. PAST SURGICAL HISTORY: None. ALLERGIES: NO KNOWN DRUG ALLERGIES. CURRENT MEDICATIONS: Folic acid 1 mg p.o. daily. SOCIAL HISTORY: The patient denies any alcohol or illicit drug use. Denies smoking, she quit 7 years ago. PHYSICAL EXAMINATION: GENERAL: The patient appears to be in some discomfort, but in no acute distress. She is well developed, well nourished. VITAL SIGNS: Temperature 98.5, pulse 79, respirations 20, O2 saturation 97% on room air, BP 135/72. HEENT: Normocephalic and atraumatic. Pupils are equal, round, and reactive to light. Sclerae are without icterus. Oropharynx is clear. NECK: Supple without lymphadenopathy. LUNGS: Clear to auscultation bilaterally. ABDOMEN: Soft, nontender, nondistended. Normoactive bowel sounds present. EXTREMITIES: Notable swelling to the right knee with no significant edema or erythema. The knee is minimally warm to touch compared to the left knee. Tenderness anteriorly, especially in the medial aspect and posteriorly as well. Color is normal to the entire right lower extremity. Pedal pulses are strong and equal bilaterally. Mild discomfort with palpation along the pretibial surface. No edema present. Normal sensation. SKIN: Without rash or jaundice. NEUROLOGIC: Alert and oriented x3. No focal deficits. LABORATORY DATA: White blood count 13.8, hemoglobin 15.3, hematocrit 47.3, platelets 449. Sodium 137, potassium 2.5, repeat potassium following potassium replacement was . BUN less than 4, creatinine 0.86, eGFR greater than 90, magnesium 2.5. LFTs unremarkable. Alkaline phosphatase 387. CRP 1.71. Total protein 9.2, globulin 4.7. Serum negative. IMAGING STUDIES: As mentioned above in the HPI. IMPRESSION AND PLAN: Ms. Delarosa is being admitted for further workup and investigations of the right knee pain. She was seen by Orthopedics in the ED, who cleared her. There was no concern for compartment syndrome; however, they will follow up with her during her stay. The patient was admitted with similar symptoms in June, affecting her left knee; at which time, she was hypokalemic as she is today. Potassium has been rechecked and she has had improvement with potassium from 2.5 to . We will give another 20 mEq of potassium and recheck in the morning. Her magnesium, however, has decreased from 2.5 at initial presentation earlier today to 1.5 this afternoon. Magnesium will be replaced and we will recheck her magnesium in the morning. Following discussion with Dr. Gonzales, he has prescribed morphine for pain control as well as Flexeril. We have requested additional investigations including TISHA, rheumatoid factor, and CRP. The patient will be seen tomorrow to assess for improvement and further workup/management to be determined. The patient is seen by Dr. Gonzales who agrees with the plan of care as described above. Job ID: [id number]
[2018-09-12] MEDS: Cyclobenzaprine 10 MG TAB PO PRN ×3 (02:17→20:18)
[2018-09-12] MEDS: Ketorolac Tromethamine 30 MG/ML VIAL IVP PRN ×2 (03:08→10:31)
[2018-09-12] MEDS: Morphine 4 MG/ML VIAL SLOW IVP PRN ×3 (03:13→13:51)
[2018-09-12 05:00] LABS: #Eosinphils 0.1 thou/uL (0.0-0.7); #Lymphocytes 2.9 thou/uL (1.20-3.40); #Monocytes 1.5 thou/uL (0.11-0.59); #Neutrophils 8.7 thou/uL (1.40-6.50); %Basophils 0.3 % (0.0-1.0); %Eosinophils 0.8 % (0.0-10.0); %Lymphocytes 21.9 % (21.0-51.0); %Monocytes 11.2 % (0.0-10.0); %Neutrophils 65.8 % (42.0-75.0); Hemoglobin 12.6 g/dL (12.0-16.0); Mean Corpuscular HGB CONC 33.4 g/dL (32.0-36.0); Mean Corpuscular Hemoglobin 29.1 pg (27.0-31.0); Mean Corpuscular Volume 87.1 fL (78.0-98.0); Mean Platelet Volume 8.4 fL (7.4-10.4); Platelet Count 325 thou/uL (130-400); RBC Distribution Width 15.4 % (11.5-14.5); Red Blood Cell (RBC) Count 4.33 mill/uL (4.20-5.40); White Blood Cell (WBC) Count 13.2 thou/uL (4.8-10.8)
[2018-09-12 05:14] LABS: ALT (SGPT) 35 U/L (8-55); AST (SGOT) 33 U/L (5-34); Albumin 3.5 g/dL (3.5-5.0); Alkaline Phosphatase 372 U/L (40-150); Anion Gap 15 mmol/L (10-20); BUN (Urea Nitrogen) 8 mg/dL (7.0-18.7); Bilirubin, Total 0.4 mg/dL (0.2-1.2); Calc. Creatinine Clearance 187 mL/min (70-130); Calcium 9.1 mg/dL (7.8-10.44); Carbon Dioxide 20 mmol/L (22-29); Chloride 102 mmol/L (98-107); Estimated GFR-MDRD Greater than 90; Globulin 3.6 g/dL (2.4-3.5); Glucose 92 mg/dL (70-105); Magnesium 2.2 mg/dL (1.6-2.6); Potassium 3.1 mmol/L (3.5-5.1); Protein, Total 7.1 g/dL (6.0-8.3); Sodium 134 mmol/L (136-145)
[2018-09-12] MEDS: Famotidine 20 MG TAB PO SCH ×2 (08:28→20:17)
[2018-09-12] MEDS: Folic Acid 1 MG TAB PO SCH ×2 (08:28→20:17)
[2018-09-12] MEDS ORDERED: Potassium Chloride 20 MEQ TAB PO SCH (13:00)
--- NOTE | 2018-09-12 14:28 | PDOC.PN ---
- Subjective Encounter Start Date: 09/12/18 Encounter Start Time: 14:27 Subjective: Patient with increased pain and swelling to right knee. -: Still unable to bear weight and hopping to the bathroom -: Reports occasional tingling in the right foot. No fever, chills or sweats. Has been tolerating food intake. No pain elsewhere. Reports occasional tingling in her fingertips. - Objective Resuscitation Status - Order Detail: 09/11/18 15:46 Resuscitation Status Routine Co-Sign Provider: Resuscitation Status: FULL: Full Resuscitation Vital Signs & Weight: Vital Signs (12 hours) Temp Pulse Resp BP Pulse Ox 09/12/18 11:45 98.3 F 80 16 119/60 96 09/12/18 07:12 97.5 F L 82 20 131/61 98 09/12/18 03:26 97.4 F L 79 18 136/67 79 L Weight Weight 244 lb I&O: 09/11/18 09/12/18 09/13/18 06:59 06:59 06:59 Intake Total 1140 Balance 1140 Result Diagrams: 09/12/18 04:32 09/12/18 04:32 Phys Exam - Physical Examination Constitutional: NAD Resting comfortably HEENT: PERRLA, moist MMs, oral pharynx no lesions Neck: no nodes, supple, full ROM Respiratory: no wheezing, no rales, no rhonchi, clear to auscultation bilateral Cardiovascular: RRR Gastrointestinal: soft, non-tender, no distention, positive bowel sounds Musculoskeletal: pulses present swelling to right knee/leg. tender to light palpation. No warmth. Neurological: normal sensation Lymphatic: no nodes Psychiatric: normal affect, A&O x 3 Skin: no rash, normal turgor Dx/Plan (1) Knee pain, right Code(s): M25.561 - PAIN IN RIGHT KNEE Status: Acute (2) Hypokalemia Code(s): E87.6 - HYPOKALEMIA Status: Acute (3) Hypomagnesemia Code(s): E83.42 - HYPOMAGNESEMIA Status: Resolved (4) Obesity Code(s): E66.9 - OBESITY, UNSPECIFIED Status: Chronic - Plan cont current plan of care, DVT proph w/lovenox, DVT proph w/SCDs Swelling/pain in right knee increased from yesterday. -: Knee US requested. Discuss with Ortho pending results. -: Mg+ improved. K+ 3.1, additional replacement PO. -: Continue analgesia. -: Uric Acid 9.2, awaiting additional investigations. * . Review of Systems - Review of Systems Constitutional: negative: fever, chills, sweats, weakness, malaise, other Eyes: negative: Pain, Vision Change, Conjunctivae Inflammation, Eyelid Inflammation, Redness, Other ENT: negative: Ear Pain, Ear Discharge, Nose Pain, Nose Discharge, Nose Congestion, Mouth Pain, Mouth Swelling, Throat Pain, Throat Swelling, Other Respiratory: negative: Cough, Dry, Shortness of Breath, Hemoptysis, SOB with Excertion, Pleuritic Pain, Sputum, Wheezing Cardiovascular: negative: chest pain, palpitations, orthopnea, paroxysmal nocturnal dyspnea, edema, light headedness, other Gastrointestinal: negative: Nausea, Vomiting, Abdominal Pain, Diarrhea, Constipation, Melena, Hematochezia, Other Genitourinary: negative: Dysuria, Frequency, Incontinence, Hematuria, Retention , Other Musculoskeletal: Leg Pain (Right knee/lower leg pain. ). negative: Neck Pain, Shoulder Pain, Arm Pain, Back Pain, Hand Pain, Foot Pain, Other Skin: negative: Rash, Lesions, Rodríguez, Bruising, Other - Medications/Allergies Allergies/Adverse Reactions: Allergies Allergy/AdvReac Type Severity Reaction Status Date / Time No Known Drug Allergies Allergy Verified 06/30/18 16:26 Medications: Current Medications Acetaminophen (Tylenol) 650 mg PO Q4H PRN PRN Reason: Headache/Fever/Mild Pain (1-3) Last Admin: 09/11/18 17:41 Dose: 650 mg Acetaminophen (Tylenol) 650 mg [place] Q4H PRN PRN Reason: Headache/Fever/Mild Pain (1-3) Acetaminophen/Codeine Phosphate (Tylenol #3) 1 tab PO Q6H PRN PRN Reason: Moderate Pain (4-6) Acetaminophen/Codeine Phosphate (Tylenol #3) 2 tab PO Q6H PRN PRN Reason: Severe Pain (7-10) Last Admin: 09/11/18 23:19 Dose: 2 tab Cyclobenzaprine HCl (Flexeril) 10 mg PO TID PRN PRN Reason: Muscle Spasm Last Admin: 01/17/19 10:31 Dose: 10 mg Famotidine (Pepcid) 20 mg PO BID [facility] Last Admin: 09/12/18 08:28 Dose: 20 mg Folic Acid (Folvite) 1 mg PO BID [facility] Last Admin: 09/12/18 08:28 Dose: 1 mg Ketorolac Tromethamine (Toradol) 15 mg IVP Q6H PRN PRN Reason: SWELLING PAIN Stop: 09/17/18 02:52 Last Admin: 09/12/18 10:31 Dose: 15 mg Morphine Sulfate (Morphine) 2 mg SLOW IVP Q4H PRN PRN Reason: Pain Last Admin: 09/12/18 13:51 Dose: 2 mg Potassium Chloride (K-Dur) 40 meq PO NOW [facility] Stop: 09/12/18 15:00 Last Admin: 09/12/18 13:51 Dose: 40 meq
--- NOTE | 2018-09-12 15:16 | ULT ---
SOFT TISSUE SONOGRAM RIGHT KNEE: History: Knee pain. Pain and swelling. FINDINGS: Sonographic evaluation about the right knee shows fluid distention of the suprapatellar bursa. At the popliteal fossa, a lobular fluid collection is 1.9 x 1.1 cm diameters. IMPRESSION: Fluid distention of the right suprapatellar bursa with a small Conrad cyst at the popliteal fossa. [place] dence of a right knee joint effusion. POS: [facility]
[2018-09-12] MEDS: Ketorolac Tromethamine 30 MG/ML VIAL IVP SCH ×2 (17:23→23:36)
--- NOTE | 2018-09-12 17:57 | PDOC.EVN ---
Event Note - Event Note Event Note: Chart reviewed. Pt seen with Lisha Mccray. Pt reports ongoing right knee pain. S1, S2 Lungs CTA R knee swollen, tender. A/P: 1. R knee pain: workup in progress. Continue pain medications. Agree with plan as documented by Ms. Mccray.
[2018-09-12] MEDS: Acetaminophen/Codeine 30-300mg Tablet PO PRN (20:17)
[2018-09-13] MEDS: Ketorolac Tromethamine 30 MG/ML VIAL IVP SCH (05:18)
[2018-09-13] MEDS: Cyclobenzaprine 10 MG TAB PO PRN (08:02)
[2018-09-13] MEDS: Folic Acid 1 MG TAB PO SCH (08:02)
[2018-09-13] MEDS: Famotidine 20 MG TAB PO SCH (08:02)
[2018-09-13] MEDS: Acetaminophen/Codeine 30-300mg Tablet PO PRN (08:03)
[2018-09-13 08:16] LABS: #Basophils 0.1 thou/uL (0.0-0.2); #Eosinphils 0.1 thou/uL (0.0-0.7); #Lymphocytes 2.2 thou/uL (1.20-3.40); #Monocytes 0.7 thou/uL (0.11-0.59); #Neutrophils 6.3 thou/uL (1.40-6.50); %Basophils 0.6 % (0.0-1.0); %Eosinophils 1.5 % (0.0-10.0); %Lymphocytes 23.4 % (21.0-51.0); %Monocytes 7.1 % (0.0-10.0); %Neutrophils 67.3 % (42.0-75.0); Hemoglobin 13.3 g/dL (12.0-16.0); Mean Corpuscular HGB CONC 31.6 g/dL (32.0-36.0); Mean Corpuscular Hemoglobin 27.8 pg (27.0-31.0); Mean Corpuscular Volume 87.8 fL (78.0-98.0); Mean Platelet Volume 8.7 fL (7.4-10.4); Platelet Count 333 thou/uL (130-400); RBC Distribution Width 15.2 % (11.5-14.5); Red Blood Cell (RBC) Count 4.78 mill/uL (4.20-5.40); White Blood Cell (WBC) Count 9.4 thou/uL (4.8-10.8)
--- NOTE | 2018-09-13 08:37 | PDOC.PN ---
- Subjective Encounter Start Date: 09/13/18 Encounter Start Time: 08:36 Subjective: Patient with persistent right knee swelling/pain. Pain well controlled. -: Remains Afebrile. No n/v. Tolerating oral intake. Reports constipation. -: Last BM this morning, small amount with straining. Flatus +. - Objective Resuscitation Status - Order Detail: 09/11/18 15:46 Resuscitation Status Routine Co-Sign Provider: Resuscitation Status: FULL: Full Resuscitation Vital Signs & Weight: Vital Signs (12 hours) Temp Pulse Resp BP Pulse Ox 09/13/18 07:17 98.4 F 78 16 130/62 98 09/13/18 05:15 98.7 F 74 13 116/58 L 97 09/12/18 23:25 98.2 F 63 17 118/53 L 95 Weight Weight 244 lb I&O: 09/12/18 09/13/18 09/14/18 06:59 06:59 06:59 Intake Total 1140 1560 Balance 1140 1560 Result Diagrams: 09/13/18 07:49 09/12/18 04:32 Phys Exam - Physical Examination Constitutional: NAD HEENT: PERRLA, moist MMs, oral pharynx no lesions Neck: no JVD, supple, full ROM Respiratory: clear to auscultation bilateral Cardiovascular: RRR, no significant murmur Gastrointestinal: soft, non-tender, no distention, positive bowel sounds Musculoskeletal: pulses present Significant swelling to right knee, no warmth, tenderness with palpation Pain with weight bearing. Tenderness to anterior lower leg. Neurological: normal sensation, moves all 4 limbs Psychiatric: normal affect, A&O x 3 Skin: no rash, normal turgor Dx/Plan (1) Knee pain, right Code(s): M25.561 - PAIN IN RIGHT KNEE Status: Acute (2) Hypokalemia Code(s): E87.6 - HYPOKALEMIA Status: Acute (3) Obesity Code(s): E66.9 - OBESITY, UNSPECIFIED Status: Chronic - Plan cont current plan of care WCC normal. Per Ortho PA assessment no concern for Septic Arthritis. -: May undergo knee aspiration for fluid assessment, will d/w Dr. Perez -: Pain improved with CODY analgesia. -: Constipation. Encouraged fluid intake. Will add -: Electrolytes pending. Will replace as necessary. * . Review of Systems - Review of Systems Constitutional: negative: fever, chills, sweats, weakness, malaise Respiratory: negative: Cough, Dry, Shortness of Breath, Hemoptysis, SOB with Excertion, Pleuritic Pain, Sputum, Wheezing Cardiovascular: negative: chest pain, palpitations, orthopnea, edema, light headedness, other Gastrointestinal: Constipation. negative: Nausea, Vomiting, Abdominal Pain, Diarrhea, Melena, Hematochezia Genitourinary: negative: Dysuria, Frequency, Incontinence, Hematuria Musculoskeletal: Leg Pain (Right knee/lower leg pain, swelling to right knee. ) Skin: negative: Rash, Lesions - Medications/Allergies Allergies/Adverse Reactions: Allergies Allergy/AdvReac Type Severity Reaction Status Date / Time No Known Drug Allergies Allergy Verified 06/30/18 16:26 Medications: Current Medications Acetaminophen (Tylenol) 650 mg PO Q4H PRN PRN Reason: Headache/Fever/Mild Pain (1-3) Last Admin: 09/11/18 17:41 Dose: 650 mg Acetaminophen (Tylenol) 650 mg [place] Q4H PRN PRN Reason: Headache/Fever/Mild Pain (1-3) Acetaminophen/Codeine Phosphate (Tylenol #3) 1 tab PO Q6H PRN PRN Reason: Moderate Pain (4-6) Acetaminophen/Codeine Phosphate (Tylenol #3) 2 tab PO Q6H PRN PRN Reason: Severe Pain (7-10) Last Admin: 09/13/18 08:03 Dose: 2 tab Cyclobenzaprine HCl (Flexeril) 10 mg PO TID PRN PRN Reason: Muscle Spasm Last Admin: 09/13/18 08:02 Dose: 10 mg Famotidine (Pepcid) 20 mg PO BID [facility] Last Admin: 09/13/18 08:02 Dose: 20 mg Folic Acid (Folvite) 1 mg PO BID [facility] Last Admin: 09/13/18 08:02 Dose: 1 mg Ketorolac Tromethamine (Toradol) 15 mg IVP Q6HR [facility] Stop: 09/17/18 18:01 Last Admin: 09/13/18 05:18 Dose: 15 mg Morphine Sulfate (Morphine) 2 mg SLOW IVP Q4H PRN PRN Reason: Pain Last Admin: 09/12/18 13:51 Dose: 2 mg
[2018-09-13 08:40] LABS: ALT (SGPT) 34 U/L (8-55); AST (SGOT) 33 U/L (5-34); Albumin 3.5 g/dL (3.5-5.0); Alkaline Phosphatase 407 U/L (40-150); Anion Gap 14 mmol/L (10-20); BUN (Urea Nitrogen) 14 mg/dL (7.0-18.7); Bilirubin, Total 0.3 mg/dL (0.2-1.2); Calc. Creatinine Clearance 192 mL/min (70-130); Calcium 9.8 mg/dL (7.8-10.44); Carbon Dioxide 22 mmol/L (22-29); Chloride 103 mmol/L (98-107); Estimated GFR-MDRD Greater than 90; Globulin 4.2 g/dL (2.4-3.5); Glucose 79 mg/dL (70-105); Potassium 4.2 mmol/L (3.5-5.1); Protein, Total 7.7 g/dL (6.0-8.3); Sodium 135 mmol/L (136-145)
[2018-09-13] MEDS ORDERED: Senokot 8.6 MG TAB PO SCH (08:44)
[2018-09-13] MEDS ORDERED: Colchicine 0.6 MG TAB PO SCH (11:00)
[2018-09-13 11:42] VITALS: BP 120/67; TEMP 98.3
[2018-09-13] MEDS ORDERED: Colchicine 0.6 MG TAB PO ONE (12:15)
[2018-09-13 13:01] LABS: ANA Symphony (Qualitative) Negative (Negative); ANA Symphony (Quantitative) Less than 0.1 Ratio (< 0.7 Negative); CCP IgG Antibody 0.5 EliAU/mL (<7 Negative); EliA RAS New Method **** NEW METHOD ****; Rheumatoid Factor IgM Antibody 0.6 IU/mL (<3.5 Negative); dsDNA IgG Antibody Less than 0.5 IU/mL (<10 Negative)
--- NOTE | 2018-09-13 13:15 | DIS ---
DATE OF ADMISSION: 09/11/2018 DATE OF DISCHARGE: 09/13/2018 CONSULTING PHYSICIANS: Orthopedics. DISCHARGE DIAGNOSES: 1. Elevated uric acid, presumed gout. 2. Hypokalemia. 3. Constipation. 4. Folate deficiency. 5. Obesity. HOSPITAL COURSE: Ms. Delarosa is a very pleasant 32-year-old woman, who presented on 09/11/2018 with complaints of right knee swelling and pain over the course of 3 to 4 days. The patient had similar presentation affecting the left knee in June 2018, requiring admission. At that time, she underwent multiple investigations including imaging that was unremarkable. Laboratory studies were notable for a folate deficiency. The patient was presumed to have thalassemia, therefore referred to Oncology, whom she has followed up with as an outpatient. On this admission, her pain is very similar, but affecting the right knee. She denies having any trauma or falls. Underwent imaging of the right ankle, foot, and knee, all unremarkable. Laboratory studies showed an initial white blood count of 13.2. Her swelling continued to increase without any signs of cellulitis or septic arthritis. However, given the raised white count and degree of pain as well as increased swelling, Orthopedics was consulted. She was seen this morning and cleared from Ortho perspective. Also, she did not have septic arthritis and discussion was held regarding fine-needle aspiration, however, deferred given the fact that she had spontaneous improvement with previous presentation in the left knee and risk for infection. Additionally, her white count has resolved on its own at 9.4 today. Her pain is now well-controlled, though she does have some increased discomfort with weightbearing. She has normal sensation in bilateral lower extremities with pedal pulses equal and strong bilaterally. Laboratory studies have indicated an elevated uric acid of 9.2, therefore she is being started on colchicine at a dose of 1.2 mg p.o. x1 followed by a 2nd dose of colchicine 0.6 mg p.o. x1 hour later. During her stay, she did have hypokalemia with a low potassium of 2.5 on initial presentation. She has received potassium replacement and today it is now normal at 4.2. We will not prescribe oral potassium as she will have electrolytes checked by either her oncologist or primary care physician once she establishes care. Due to the scheduled Toradol, she has developed constipation, last moved her bowels early this morning. She has been tolerating a regular diet. Given the common side effect of diarrhea with colchicine, we will hold off on prescribing any stool softeners. She was instructed to hold colchicine if diarrhea develops until seen by her primary care physician. REVIEW OF SYSTEMS: On day of discharge, the patient feels well despite the discomfort in the right knee and persistent swelling. Denies having any fevers, chills, or sweats. Denies having any headaches or dizziness. No nausea, vomiting, or diarrhea. Denies having any blood in her stools. No chest pain, palpitations, or shortness of breath. No urinary symptoms. No skin changes. LABORATORY DATA: White blood count 9.4, hemoglobin 13.3, platelets 333. Sodium 135, potassium 4.2, BUN 14, creatinine 0.75, GFR greater than 90, glucose 79, calcium 9.8, LFTs unremarkable, alkaline phosphatase raised at 407. Vitamin B12 247, folate 15.5. Serum negative. IMAGING DATA: 1. 09/11/2018, Right lower extremity venous Doppler; no evidence of DVT in the right lower extremity. 2. 09/11/2018, Right ankle x-ray; no acute changes or abnormalities. 3. 09/11/2018, Right foot x-ray; unremarkable. 4. 09/11/2018, Right knee x-ray; unremarkable. 5. Soft tissue ultrasound of right knee, 09/12/2018; fluid distention of the right suprapatellar bursa with a small Conrad cyst at the popliteal fossa. Evidence of a right knee joint effusion. The lobular fluid collection measures 1.9 x 1.1 cm. DISCHARGE MEDICATIONS: The patient was advised to resume home medications. Prescriptions given for the followin. Colchicine 0.6 mg p.o. daily. 2. Flexeril 10 mg p.o. t.i.d. as needed for muscle spasm. 3. Pepcid 20 mg p.o. b.i.d. 4. Toradol 10 mg p.o. every 6 hours as needed for pain. PROCEDURES: None. CONDITION AT DISCHARGE: Stable. ACTIVITY: As tolerated. DIET: Regular diet. FOLLOWUP: 1. The patient will follow up with Oncology as scheduled. 2. The patient was given information on different options to establish health care such as [facility] and [facility]. Prescription card also given. She was advised to schedule an appointment as soon as possible and will hopefully have followup within the next week for continued management of her gout and repeat laboratory studies. 3. The patient's case was discussed with Dr. Perez, who agrees with plan of care as described above. DISPOSITION: Cleared for discharge home on 09/13/2018. Patients case discussed with Dr. Perez who agrees with plan as above. Job ID: [id number] MTDD
[2018-09-14] MEDS ORDERED: Senokot S 8.6-50 MG TAB PO SCH (09:00)
== END 2018-09-13 12:35 | disposition home or self-care (01) ==
LOC: ERS 07:13 → ERHOLD 10:55 → 2SW 13:47
PROVIDERS: ADMIT Internal Medicine; ATTEND Internal Medicine
DX: E79.0 Hyperuricemia without signs of inflammatory arthritis and tophaceous disease (principal); M25.561 Pain in right knee; E87.6 Hypokalemia; K59.00 Constipation, unspecified; E53.8 Deficiency of other specified B group vitamins; E66.9 Obesity, unspecified; Z68.38 Body mass index [BMI] 38.0-38.9, adult; M71.21 Synovial cyst of popliteal space [Baker], right knee; M25.461 Effusion, right knee; E83.42 Hypomagnesemia; Z87.891 Personal history of nicotine dependence; Z79.899 Other long term (current) drug therapy
CPT/HCPCS: 36415; 76999; 80053; 82550; 82607; 82746; 83520; 83540; 83550; 83735; 84550; 84703; 85025; 85652; 86038; 86140; 86200; 86225; 96361; 96374; 96375; 96376; G0378; J1885; J2270; J2405; Q0162

== ENCOUNTER 2019-06-27 07:49 | Emergency (ER) | payer SELFPAY ==
[2019-06-27] MEDS ORDERED: Ketorolac Tromethamine 30 MG/ML VIAL ONE (08:06)
[2019-06-27] MEDS ORDERED: Fentanyl 100 MCG/2 ML VIAL ONE (08:06)
[2019-06-27 08:26] LABS: Hemoglobin 11.9 g/dL (12.0-16.0); Mean Corpuscular HGB CONC 33.7 g/dL (32.0-36.0); Mean Corpuscular Hemoglobin 38.3 pg (27.0-31.0); Mean Platelet Volume 6.7 fL (7.4-10.4); Platelet Count 447 thou/uL (130-400); RBC Distribution Width 14.4 % (11.5-14.5); Red Blood Cell (RBC) Count 3.09 mill/uL (4.20-5.40); White Blood Cell (WBC) Count 18.2 thou/uL (4.8-10.8)
[2019-06-27 08:31] LABS: BHCG - Serum Negative (NEGATIVE); Pregs Control Background? CLEAR/WHITE (CLR/WHITE); Pregs Control Bar Appear? YES (CONTROL BAR)
[2019-06-27 08:42] LABS: CRP (Inflammatory) 7.43 mg/dL (= or < 0.5); Uric Acid 8.4 mg/dL (2.6-6.0)
[2019-06-27 08:49] LABS: Band 3 % (5-11); Eosinophils 1 % (0-10); Lymphocytes 19 % (21-51); MDiff Complete? YES; Macrocytosis MODERATE=16-30 cells (100X) (0-5/hpf); Monocytes 6 % (0-10); Neutrophil 66 % (42-75); Platelet Morphology Comment Appears Increased; Polychromasia SLIGHT = 2-3 cells (100X) (0-2/hpf); Reactive Lymphocytes 5 % (0-10); Stomatocytes SLIGHT = 2-5 cells (100X) (0-1/hpf)
[2019-06-27 08:55] LABS: Anion Gap 12 mmol/L (10-20); BUN (Urea Nitrogen) 5 mg/dL (7.0-18.7); Calc. Creatinine Clearance 0 mL/min (70-130); Calcium 9.2 mg/dL (7.8-10.44); Carbon Dioxide 29 mmol/L (22-29); Chloride 100 mmol/L (98-107); Estimated GFR-MDRD Greater than 90; Glucose 98 mg/dL (70-105); Sodium 139 mmol/L (136-145)
[2019-06-27 08:57] LABS: Potassium 2.2 mmol/L (3.5-5.1)
[2019-06-27] MEDS ORDERED: Potassium Chloride 20 MEQ TAB ONE (09:02)
--- NOTE | 2019-06-27 09:13 | RAD ---
LEFT ANKLE 3 VIEWS: DATE: 06/27/19 HISTORY: Left ankle pain. FINDINGS/IMPRESSION: No fracture, dislocation, or bony destruction seen. The ankle mortise is maintained. POS: OFF
--- NOTE | 2019-06-27 09:54 | CT ---
CT Lower Ext Lt WO Con History: Pain Comparison: Radiograph same day Findings: Bones: Either prominent nutrient foramen or nondisplaced intra-articular fracture base seco nd toe proximal phalanx sagittal image 27. No erosions or periostitis. Healing fracture of the lateral process calcaneus of the expected location bifurcate ligament. The tibia and fibula are intact. Muscles: Muscle signal and bulk is normal. Soft tissues: There is a large ankle joint effusion. No intra-articular fracture of the ankle is appr eciated. No talar dome osteochondral defect. Circumferential swelling of the forefoot and midfoot. Soft tissue callus along the small toe metatars al phalangeal joint. Tendons: No subluxation the peroneal tendons. Flexor and extensor tendons are intact. Impression: 1. 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 Aspiration recommended. Septic arthritis is felt less likely as there is no underlying osseous change to support this. 2. Healing fracture of the lateral process calcaneus at the expected location bifurcate ligament. 3. Either prominent nutrient foramen versus nondisplaced fracture proximal phalanx base second toe at the metatarsal phalangeal joint.
[2019-06-27] MEDS ORDERED: Ondansetron PF 4 MG/2 ML Vial ONE (09:58)
[2019-06-27] MEDS ORDERED: Dexamethasone 10 MG/ML VIAL ONE (10:06)
== END 2019-06-27 10:16 | disposition home or self-care (01) ==
LOC: ERS 07:49
DX: M10.9 Gout, unspecified (principal); D72.829 Elevated white blood cell count, unspecified; Z87.891 Personal history of nicotine dependence
CPT/HCPCS: 80048; 84550; 84703; 85025; 85652; 86140; 96374; 96375; J1100; J1885; J2405; J3010

== ENCOUNTER 2021-02-28 08:39 | Emergency (ER) | payer SELFPAY ==
[2021-02-28] MEDS ORDERED: predniSONE 20 MG TAB ONE ×2 (08:54→08:58)
[2021-02-28] MEDS ORDERED: Ketorolac Tromethamine 30 MG/ML VIAL ONE (08:54)
== END 2021-02-28 09:48 | disposition home or self-care (01) ==
LOC: ERS 08:39
DX: M25.571 Pain in right ankle and joints of right foot (principal); Z87.891 Personal history of nicotine dependence
CPT/HCPCS: 96372; J1885; J7512

== ENCOUNTER 2021-05-27 08:14 | Emergency (ER) | payer MEDICAID, OTHER, SELFPAY ==
[2021-05-27] MEDS ORDERED: Ketorolac Tromethamine 30 MG/ML VIAL ONE (09:54)
[2021-05-27 13:01] LABS: #Basophils 0.1 thou/uL (0.0-0.2); #Eosinphils 0.4 thou/uL (0.0-0.7); #Lymphocytes 4.2 thou/uL (1.20-3.40); #Neutrophils 7.7 thou/uL (1.40-6.50); %Basophils 0.9 % (0.0-1.0); %Eosinophils 2.7 % (0.0-10.0); %Lymphocytes 31.3 % (21.0-51.0); %Monocytes 7.7 % (0.0-10.0); %Neutrophils 57.3 % (42.0-75.0); Hemoglobin 13.6 g/dL (12.0-16.0); Mean Corpuscular HGB CONC 32.6 g/dL (32.0-36.0); Mean Corpuscular Hemoglobin 32.9 pg (27.0-31.0); Mean Platelet Volume 6.9 fL (7.4-10.4); Platelet Count 501 thou/uL (130-400); RBC Distribution Width 13.3 % (11.5-14.5); Red Blood Cell (RBC) Count 4.12 mill/uL (4.20-5.40); White Blood Cell (WBC) Count 13.5 thou/uL (4.8-10.8)
[2021-05-27 13:21] LABS: ALT (SGPT) 23 U/L (8-55); AST (SGOT) 21 U/L (5-34); Albumin 3.5 g/dL (3.5-5.0); Alkaline Phosphatase 211 U/L (40-110); Anion Gap 10 mmol/L (10-20); BUN (Urea Nitrogen) 5 mg/dL (7.0-18.7); Bilirubin, Total 0.3 mg/dL (0.2-1.2); CRP (Inflammatory) 0.86 mg/dL (= or < 0.5); Calc. Creatinine Clearance 0 mL/min (70-130); Calcium 9.3 mg/dL (7.8-10.44); Carbon Dioxide 27 mmol/L (22-29); Chloride 105 mmol/L (98-107); Globulin 3.6 g/dL (2.4-3.5); Glucose 93 mg/dL (70-105); Protein, Total 7.1 g/dL (6.0-8.3); Sodium 138 mmol/L (136-145)
== END 2021-05-27 13:43 | disposition home or self-care (01) ==
LOC: ERS 08:14
DX: M23.91 Unspecified internal derangement of right knee (principal); M25.461 Effusion, right knee; Z87.891 Personal history of nicotine dependence
CPT/HCPCS: 36415; 80053; 85025; 85652; 86140; 96372; J1885

== ENCOUNTER 2022-03-22 05:34 | Emergency (ER) | payer MEDICAID, SELFPAY ==
[2022-03-22] MEDS ORDERED: Ketorolac Tromethamine 30 MG/ML VIAL ONE (07:51)
== END 2022-03-22 08:40 | disposition home or self-care (01) ==
LOC: ERS 05:34
DX: M25.461 Effusion, right knee (principal); M25.561 Pain in right knee; Z87.891 Personal history of nicotine dependence
CPT/HCPCS: 96372; J1885

== ENCOUNTER 2023-06-19 08:54 | Inpatient (IN) | payer SELFPAY ==
[2023-06-19] MEDS ORDERED: LORazepam 2 MG/ML SYR.(CARPUJECT) ONE (09:02)
[2023-06-19 09:28] LABS: Bacteria/HPF None Seen HPF (None Seen); Bilirubin Negative (Negative); Blood, Urine Negative (Negative); CAUTI Indications for Culture Alt mental st,lethar; Clarity Clear (Clear); Glucose, Urine (Dipstick) Normal (Negative); Ketone, Urine Negative (Negative); Leukocyte Negative Leu/uL (Negative); Nitrite Negative (Negative); Protein, Urine (Dipstick) Negative (Neg-Trace); RBC/HPF None Seen HPF (0-3); Specific Gravity, Urine 1.012 (1.002-1.036); Squamous Epithelial 0-3 HPF (0-3); Urobilinogen Normal mg/dL (Less than 2); WBC/HPF 0-3 HPF (0-3)
[2023-06-19 09:36] LABS: Amphetamine Not Detected (NotDetected); Barbiturates Screen Not Detected (NotDetected); Benzodiazepine Screen Not Detected (NotDetected); Cocaine Metabolite Screen Not Detected (NotDetected); Methadone Not Detected (NotDetected); Methamphetamine Not Detected (NotDetected); Opiate Screen Not Detected (NotDetected); Oxycodone Screen Not Detected (NotDetected); Phencyclidine (PCP) Not Detected (NotDetected); THC/Cannabinoid Screen Detected (NotDetected); Tricyclic Screen Not Detected (NotDetected)
[2023-06-19 09:42] LABS: Urine Culture Reflex No No
[2023-06-19 09:50] LABS: #Basophils 0.1 thou/uL (0.0-0.2); #Eosinphils 0.1 thou/uL (0.0-0.7); #Monocytes 0.7 thou/uL (0.11-0.59); #Neutrophils 4.4 thou/uL (1.40-6.50); %Eosinophils 1.3 % (0.0-10.0); %Lymphocytes 32.1 % (21.0-51.0); %Monocytes 8.9 % (0.0-10.0); %Neutrophils 56.2 % (42.0-75.0); Hematocrit 40.6 % (36.0-47.0); Hemoglobin 13.2 g/dL (12.0-16.0); Mean Corpuscular HGB CONC 32.5 g/dL (32.0-36.0); Mean Corpuscular Hemoglobin 34.3 pg (27.0-31.0); Mean Corpuscular Volume 105.5 fl (78.0-98.0); Mean Platelet Volume 9.2 fL (7.4-10.4); Platelet Count 410 10x3/uL (130-400); RBC Distribution Width 18.6 % (11.5-14.5); Red Blood Cell (RBC) Count 3.85 mill/uL (4.20-5.40); White Blood Cell (WBC) Count 7.9 10x3/uL (4.8-10.8)
[2023-06-19 09:59] LABS: BHCG - Serum Negative (NEGATIVE); Pregs Control Background? CLEAR/WHITE (CLR/WHITE); Pregs Control Bar Appear? YES (CONTROL BAR)
[2023-06-19 10:07] LABS: Acetaminophen Less than 10 mcg/mL (10.0-30.0); Alcohol 61.3 mg/dL (Less than 10); Magnesium 1.8 mg/dL (1.6-2.6); Salicylate Less than 8.0 mg/dL (15.0-30.0)
[2023-06-19 10:10] LABS: Troponin I Less than 0.010 ng/mL (< 0.028)
[2023-06-19 10:12] LABS: ALT (SGPT) 28 U/L (8-55); AST (SGOT) 43 U/L (5-34); Albumin 4.4 g/dL (3.5-5.0); Alkaline Phosphatase 183 U/L (40-110); Anion Gap 22 mmol/L (10-20); BUN (Urea Nitrogen) 4 mg/dL (7.0-18.7); Bilirubin, Total 0.2 mg/dL (0.2-1.2); CK (CPK) 89 U/L (29-168); Calc. Creatinine Clearance 0 mL/min (70-130); Carbon Dioxide 15 mmol/L (22-29); Chloride 111 mmol/L (98-107); Estimated GFR 110; Globulin 3.2 g/dL (2.4-3.5); Glucose 129 mg/dL (70-105); Potassium 3.1 mmol/L (3.5-5.1); Protein, Total 7.6 g/dL (6.0-8.3); Sodium 145 mmol/L (136-145)
[2023-06-19] MEDS ORDERED: levETIRAcetam 500 MG/5 ML VIAL ONE (12:29)
[2023-06-19 12:57] LABS: Lactic Acid 2.5 mmol/L (0.5-2.2)
[2023-06-19] MEDS ORDERED: Ondansetron PF 4 MG/2 ML Vial IVP PRN (13:02)
[2023-06-19] MEDS ORDERED: Senokot S 8.6-50 MG TAB PO PRN (13:02)
[2023-06-19] MEDS ORDERED: Acetaminophen 650 MG Suppository PR PRN (13:02)
[2023-06-19] MEDS ORDERED: Calcium Carbonate 500 MG ChewTAB PO PRN (13:02)
[2023-06-19] MEDS ORDERED: Lorazepam 1 MG TAB PO PRN (13:11)
[2023-06-19] MEDS ORDERED: Electrolyte Replacement Protocol 1 EACH FS SCH (13:15)
[2023-06-19] MEDS ORDERED: Magnesium 2 GM/50 ML(in water) 2 GM in Premix 1 BAG IVPB SCH (13:15)
[2023-06-19 13:58] LABS: Actual Bicarbonate (HCO3v) 19.1 mEq/L (22-28); Calcium, Ionized (venous) 1.13 mmol/L (1.16-1.32); Chloride (VBG) 111 mmol/L (98-106); Hematocrit-VBG 46 % (36.0-47.0); Hemoglobin (Hb) 15.8 g/dL (11.7-15.5); Potassium (VBG) 3.42 mmol/L (3.70-5.30); Sodium 147 mmol/L (133-146); pH (venous) 7.376 (7.32-7.43)
[2023-06-19] MEDS: Potassium Chloride 20 MEQ in Premix 1 BAG IVPB SCH (15:47)
[2023-06-19 17:17] LABS: Lactic Acid 2.4 mmol/L (0.5-2.2)
[2023-06-19 17:21] LABS: Anion Gap 13 mmol/L (10-20); BUN (Urea Nitrogen) 5 mg/dL (7.0-18.7); Calc. Creatinine Clearance 0 mL/min (70-130); Calcium 8.3 mg/dL (7.8-10.44); Carbon Dioxide 18 mmol/L (22-29); Chloride 119 mmol/L (98-107); Estimated GFR 105; Glucose 99 mg/dL (70-105); Potassium 3.1 mmol/L (3.5-5.1); Sodium 147 mmol/L (136-145)
[2023-06-19] MEDS: Thiamine HCl 200 MG/2 ML VIAL SLOW IVP SCH (17:23)
[2023-06-19] MEDS: Lactated Ringer's 1,000 ML IV SCH (17:23)
[2023-06-19] MEDS: Ampicillin/Sulbactam 3 GM in Sodium Chloride 0.9% 100 ML IVPB SCH ×2 (17:46→22:03)
[2023-06-19 17:59] VITALS: BMI 43.5
[2023-06-19] MEDS ORDERED: Potassium Chloride 20 MEQ in Premix 1 BAG IVPB SCH (18:00)
[2023-06-19] MEDS ORDERED: Potassium Chloride 20 MEQ TAB PO SCH (18:30)
[2023-06-19] MEDS ORDERED: Folic Acid 1 MG TAB PO SCH (21:00)
[2023-06-19] MEDS: Famotidine/PF 20 mg/2ml Vial SLOW IVP SCH (22:02)
[2023-06-19] MEDS: Multivit, Therapeutic 1 TAB PO SCH (22:03)
[2023-06-20] MEDS: Lactated Ringer's 1,000 ML IV SCH (02:50)
[2023-06-20] MEDS: Ampicillin/Sulbactam 3 GM in Sodium Chloride 0.9% 100 ML IVPB SCH ×4 (02:50→20:03)
[2023-06-20] MEDS: Acetaminophen 325 MG TAB PO PRN ×2 (03:18→08:03)
[2023-06-20 04:15] LABS: #Eosinphils 0.2 thou/uL (0.0-0.7); #Monocytes 0.9 thou/uL (0.11-0.59); #Neutrophils 7.9 thou/uL (1.40-6.50); %Basophils 0.2 % (0.0-1.0); %Eosinophils 1.7 % (0.0-10.0); %Lymphocytes 24.6 % (21.0-51.0); %Monocytes 7.3 % (0.0-10.0); Hematocrit 32.1 % (36.0-47.0); Mean Corpuscular HGB CONC 34.3 g/dL (32.0-36.0); Mean Corpuscular Hemoglobin 35.1 pg (27.0-31.0); Mean Corpuscular Volume 102.6 fl (78.0-98.0); Mean Platelet Volume 9.4 fL (7.4-10.4); Platelet Count 340 10x3/uL (130-400); RBC Distribution Width 18.5 % (11.5-14.5); Red Blood Cell (RBC) Count 3.13 mill/uL (4.20-5.40)
[2023-06-20 04:43] LABS: Bilirubin, Direct 0.3 mg/dL (0.1-0.3); Phosphorus 2.8 mg/dL (2.3-4.7)
[2023-06-20 04:58] LABS: ALT (SGPT) 21 U/L (8-55); AST (SGOT) 21 U/L (5-34); Albumin 3.3 g/dL (3.5-5.0); Alkaline Phosphatase 147 U/L (40-110); Anion Gap 12 mmol/L (10-20); BUN (Urea Nitrogen) 4 mg/dL (7.0-18.7); Bilirubin, Total 0.6 mg/dL (0.2-1.2); Calc. Creatinine Clearance 208 mL/min (70-130); Calcium 8.2 mg/dL (7.8-10.44); Carbon Dioxide 17 mmol/L (22-29); Chloride 116 mmol/L (98-107); Estimated GFR 106; Globulin 2.7 g/dL (2.4-3.5); Glucose 103 mg/dL (70-105); Magnesium 1.8 mg/dL (1.6-2.6); Potassium 3.3 mmol/L (3.5-5.1); Sodium 142 mmol/L (136-145)
[2023-06-20 05:51] LABS: MONO NEGATIVE CONTROL ZONE White (Negative) (White); MONO POSITIVE CONTROL Pink Line (Positive) (PINK/RED); Mononucleosis NEGATIVE (NEGATIVE)
[2023-06-20] MEDS: Famotidine/PF 20 mg/2ml Vial SLOW IVP SCH (07:56)
[2023-06-20] MEDS ORDERED: Magnesium 2 GM/50 ML(in water) 2 GM in Premix 1 BAG IVPB SCH (08:00)
[2023-06-20] MEDS ORDERED: Potassium Chloride 20 MEQ TAB PO SCH ×2 (08:00→09:00)
[2023-06-20] MEDS: Fioricet 325/50/40 mg Tablet PO PRN ×2 (10:06→23:23)
[2023-06-20] MEDS ORDERED: Lorazepam 1 MG TAB PO PRN (13:11)
[2023-06-20] MEDS: Thiamine HCl 200 MG/2 ML VIAL SLOW IVP SCH (15:38)
[2023-06-20 16:28] LABS: Potassium 3.3 mmol/L (3.5-5.1)
[2023-06-20] MEDS ORDERED: Cyclobenzaprine 10 MG TAB PO PRN (17:49)
[2023-06-20] MEDS ORDERED: hydrALAZINE 20 MG/ML VIAL SLOW IVP PRN (17:50)
[2023-06-20] MEDS: Lisinopril 20 MG TAB PO SCH (18:51)
[2023-06-20] MEDS: Famotidine 20 MG TAB PO SCH (20:03)
[2023-06-20] MEDS: Multivit, Therapeutic 1 TAB PO SCH (20:03)
[2023-06-20] MEDS: Metoprolol Tartrate 25 MG TAB PO SCH (20:03)
[2023-06-20] MEDS ORDERED: Folic Acid 1 MG TAB PO SCH (21:00)
[2023-06-21] MEDS: Ampicillin/Sulbactam 3 GM in Sodium Chloride 0.9% 100 ML IVPB SCH ×2 (02:11→09:03)
[2023-06-21 05:47] LABS: #Eosinphils 0.3 thou/uL (0.0-0.7); #Monocytes 0.9 thou/uL (0.11-0.59); #Neutrophils 6.9 thou/uL (1.40-6.50); %Basophils 0.4 % (0.0-1.0); %Lymphocytes 26.5 % (21.0-51.0); %Monocytes 8.1 % (0.0-10.0); %Neutrophils 61.7 % (42.0-75.0); Hematocrit 33.7 % (36.0-47.0); Mean Corpuscular HGB CONC 32.6 g/dL (32.0-36.0); Mean Corpuscular Hemoglobin 34.4 pg (27.0-31.0); Mean Corpuscular Volume 105.3 fl (78.0-98.0); Mean Platelet Volume 9.6 fL (7.4-10.4); Platelet Count 320 10x3/uL (130-400); RBC Distribution Width 18.3 % (11.5-14.5); White Blood Cell (WBC) Count 11.2 10x3/uL (4.8-10.8)
[2023-06-21 05:57] LABS: Hemoglobin A1c 4.8 % (4.0-6.0)
[2023-06-21 06:12] LABS: Anion Gap 10 mmol/L (10-20); BUN (Urea Nitrogen) 6 mg/dL (7.0-18.7); Calc. Creatinine Clearance 211 mL/min (70-130); Calcium 8.5 mg/dL (7.8-10.44); Carbon Dioxide 22 mmol/L (22-29); Cardiac Risk 2.9 (Less than 4.5); Chloride 112 mmol/L (98-107); Cholesterol 156 mg/dl (< 200 Desired); Estimated GFR 108; Glucose 86 mg/dL (70-105); HDL Cholesterol 54 mg/dL (>60 Neg Risk); LDL Cholesterol, Calculated 80 mg/dL; Potassium 3.5 mmol/L (3.5-5.1); Sodium 140 mmol/L (136-145); Triglycerides 108 mg/dL (Less than 150)
[2023-06-21 08:23] VITALS: TEMP 98.2
[2023-06-21] MEDS ORDERED: Potassium Chloride 20 MEQ TAB PO SCH (08:30)
[2023-06-21] MEDS ORDERED: Electrolyte Replacement Protocol FS PRN (08:30)
[2023-06-21] MEDS ORDERED: Allopurinol 100 MG TAB PO SCH (09:00)
[2023-06-21] MEDS ORDERED: Folic Acid 1 MG TAB PO SCH (09:00)
[2023-06-21] MEDS ORDERED: Colchicine 0.6 MG TAB PO SCH (09:00)
[2023-06-21] MEDS: Lisinopril 20 MG TAB PO SCH (09:06)
[2023-06-21] MEDS: Metoprolol Tartrate 25 MG TAB PO SCH (09:06)
[2023-06-21] MEDS: Famotidine 20 MG TAB PO SCH (09:07)
[2023-06-21 11:54] VITALS: BP 134/96
[2023-06-21 13:11] LABS: Potassium 3.7 mmol/L (3.5-5.1)
[2023-06-21] MEDS ORDERED: Lorazepam 1 MG TAB PO PRN (13:11)
[2023-06-22] MEDS ORDERED: Thiamine 100 MG TAB PO SCH (09:00)
[2023-06-22] MEDS ORDERED: Lorazepam 0.5 MG TAB PO PRN (13:11)
== END 2023-06-21 14:06 | disposition home or self-care (01) | DRG 896 ==
LOC: ERS 08:54 → SUATTDRO 08:54 → ERHOLD 11:55 → 2SE 15:07 → 2SW 22:01 → OBSVTOIN 06-21 11:59
PROVIDERS: ADMIT Internal Medicine; ATTEND Family Medicine
PROC: 0T9B70Z Drainage of Bladder with Drainage Device, Via Natural or Artificial Opening (ICD-10-PCS; principal; 2023-06-21)
PROC: 4A00X4Z Measurement of Central Nervous Electrical Activity, External Approach (ICD-10-PCS; 2023-06-21)
DX: F10.129 Alcohol abuse with intoxication, unspecified (principal); J69.0 Pneumonitis due to inhalation of food and vomit; G93.40 Encephalopathy, unspecified; E87.20 Acidosis, unspecified; Z68.41 Body mass index [BMI] 40.0-44.9, adult; R41.82 Altered mental status, unspecified; R59.0 Localized enlarged lymph nodes; F12.920 Cannabis use, unspecified with intoxication, uncomplicated; E66.9 Obesity, unspecified; M10.9 Gout, unspecified; Z79.899 Other long term (current) drug therapy; I10 Essential (primary) hypertension; D72.829 Elevated white blood cell count, unspecified; E87.6 Hypokalemia; K21.9 Gastro-esophageal reflux disease without esophagitis; D52.9 Folate deficiency anemia, unspecified; R56.9 Unspecified convulsions
CPT/HCPCS: 36415; 70450; 70551; 71045; 71250; 72125; 80048; 80053; 80061; 80306; 80307; 81001; 82140; 82248; 82550; 82805; 83036; 83605; 83735; 83930; 84100; 84145; 84146; 84443; 84484; 84703; 85025; 86308; 87040; 87077; 87149; 93005; 93306; 94760; 95816; 95819; J0295; J1953; J2060; J2405; J3411; J3475; J3480; J3490; J7120; S0028

== ENCOUNTER 2024-02-08 08:34 | Emergency (ER) | payer OTHER, SELFPAY ==
[2024-02-08] MEDS ORDERED: Dexamethasone 10 MG/ML VIAL ONE (09:14)
== END 2024-02-08 09:28 | disposition home or self-care (01) ==
LOC: ERS 08:34
DX: S46.812A Strain of other muscles, fascia and tendons at shoulder and upper arm level, left arm, initial encounter (principal); I10 Essential (primary) hypertension; M10.9 Gout, unspecified; X50.0XXA Overexertion from strenuous movement or load, initial encounter; Z87.891 Personal history of nicotine dependence; Z79.899 Other long term (current) drug therapy
CPT/HCPCS: 96372; 99282; J1100

== ENCOUNTER 2025-04-13 12:41 | Emergency (ER) | payer SELFPAY | END 2025-04-13 13:48 | disposition home or self-care (01) | LOC: ERS 12:41 | DX: F43.0 Acute stress reaction (principal); I10 Essential (primary) hypertension; F17.210 Nicotine dependence, cigarettes, uncomplicated; Z79.899 Other long term (current) drug therapy | CPT/HCPCS: 99283 ==